=== PATIENT | male | born 1955 | race Caucasian/White ===

== ENCOUNTER 2020-09-25 17:37 | Outpatient (RCR) | payer MEDICARE, SELFPAY ==
[2020-09-25] MEDS: COVID-19 VACC, MRNA(PFIZER)/PF 30 MCG/0.3 ML SYRINGE IM (08:15)
[2020-10-16] MEDS: COVID-19 VACC, MRNA(PFIZER)/PF 30 MCG/0.3 ML SYRINGE IM (08:05)
== END 2020-12-25 23:59 ==
LOC: IMMUN 17:37
PROVIDERS: PCP Internal Medicine; Visit Provider Family Medicine
DX: Z23 Encounter for immunization (principal)
CPT/HCPCS: 0001A; 0002A; 91300

== ENCOUNTER 2021-05-07 07:27 | Day surgery (SDC) | payer MEDICARE, SELFPAY ==
[2021-05-07] MEDS: Lactated Ringers 1,000 ML 100 ML IV (08:00)
[2021-05-07 08:15] VITALS: BP 136/86; PULSE 65; RESP 16; TEMP 36.1; O2SAT 98; BMI 22.7
--- NOTE | 2021-05-07 08:32 | HP.PCM_ITS ---
HPI - General HPI Narrative SANYA KIRKPATRICK, is a 65 M who presents for screening colonoscopy. The patient is never had a colonoscopy in the past. Patient reports no abdominal pain or blood in stool. He has no family history of colon cancer. [facility] Medical History (Updated 05/07/21 @ 08:[address] Matteo Lee MD) Wears contact lenses Wears glasses Home Medications multivitamin 1 tab PO DAILY 05/02/21 [History Last Taken 05/06/21] Allergy/AdvReac Type Severity Reaction Status Date / Time No Known Allergies Allergy Verified 05/02/21 14:09 Surgical History (Updated 05/02/21 @ 14:13 by Beth Peña) Hx of surgical procedure Social History Smoking Status: Never smoker Past Medical/Surgical History Planned Operation Planned Operative Procedure/s: COLONOSCOPY Previous Hospitalizations/Surgeries HX Hospitalizations: No Any Problems With Anesthesia: No You/Your Family Experience Fever (Hyperthermia) With Anes: No Cholinesterase deficiency: No Cardiovascular Hx Hypertension: No Respiratory Hx Sleep Apnea: No Hx Respiratory Tract Infection/Cold (presently): No Do You Snore Loudly (louder than talking or can be heard): No Do You Often Feel Tired/ Fatigued/ Sleepy Dring Daytime?: No Has Anyone Observed You Stop Breathing During Sleep?: No Result (for STOP score): Negative Smoking Status: Never smoker Neurological Does patient have nerve stimulator: No Miscellaneous Recent Exposure to Contagious Disease: No Allergies No Known Allergies Allergy (Verified 05/02/21 14:09) Discharge Is Pt Admitted From a Skilled Nursing, or a [facility]: No After D/C, Where Do you Plan to Go: Return Home Vital Signs Vital Signs Vital Signs: 05/07/21 08:15 Temperature 96.9 F L Temperature Source Temporal Pulse Rate 65 Respiratory Rate 16 Respiratory Pattern Normal Blood Pressure 136/86 H Blood Pressure Mean 102 Blood Pressure Source Monitor Blood Pressure Position Semi-Fowlers Blood Pressure Location Left Arm Pulse Ox 98 Oxygen Delivery Method Room Air Weight Weight: 158 lb 11.725 oz Body Mass Index (BMI) 22.7 Physical Exam Const alert and oriented x3 Resp normal respiratory effort and normal air movement Cardio regular rate and regular rhythm GI soft to palpation, non-tender and non-distended Assessment & Plan Assessment/Plan (1) Screen for colon cancer: PLAN: I explained endoscopy in detail to the patient. I explained the risks including but not limited to stroke or heart attack with anesthesia, p erforation of the GI tract, bleeding, infection. I explained that any of these could necessitate further emergency surgery. The patient understands and all questions were answered sufficiently. The patient wishes to proceed with procedure. Matteo Lee MD Pager: [facility] [address] [place] [address] [address] [place] [address] Office: Surgery Risks - Colonoscopy Risks Include but are not Limited To: Risks include but are not limited to: Bleeding, perforation requiring further surgery, inability to complete colonoscopy requiring barium enema.
[2021-05-07 09:10] VITALS: BP 108/79; BP 136/86; PULSE 70; RESP 16; TEMP 36.1; O2SAT 99
[2021-05-07 09:15] VITALS: BP 109/82; BP 136/86; PULSE 69; RESP 16; O2SAT 99
[2021-05-07 09:20] VITALS: BP 116/74; BP 136/86; PULSE 58; RESP 16; O2SAT 97
--- NOTE | 2021-05-07 09:21 | OP.COLON_ITS ---
Patient Name: Eliecer Santoro Procedure Date: 05/07/2021 8:43 AM Date of : 1955 Age: 65 Procedure: Colonoscopy Indications: Screening for colorectal malignant neoplasm Providers: Matteo Lee MD Medicines: Monitored Anesthesia Care Patient Profile: This is a 65 year old male. Refer to note in patient chart for documentation of history and physical. Last Colonoscopy: none. The patient's first colonoscopy is today. Complications: No immediate complications. Procedure: Pre-Anesthesia Assessment: - Prior to the procedure, a History and Physical was performed, and patient medications and allergies were reviewed. The patient's tolerance of previous anesthesia was also reviewed. The risks and benefits of the procedure and the sedation options and risks were discussed with the patient. All questions were answered, and informed consent was obtained. Prior Anticoagulants: The patient has taken no previous anticoagulant or antiplatelet agents. After reviewing the risks and benefits, the patient was deemed in satisfactory condition to undergo the procedure. After I obtained informed consent, the scope was passed under direct vision. Throughout the procedure, the patient's blood pressure, pulse, and oxygen saturations were monitored continuously. The colonoscope was introduced through the anus and advanced to the cecum, identified by appendiceal orifice and ileocecal valve. The colonoscopy was performed without difficulty. The patient tolerated the procedure well. The quality of the bowel preparation was good. Scope In: 8:49:51 AM Scope Withdrawal Time 0 hours 6 minutes 28 seconds Scope Out: 9:06:04 AM Total Procedure Duration Time 0 hours 16 minutes 13 seconds Findings: The entire examined colon appeared normal on direct and retroflexion views. Impression: - The entire examined colon is normal on direct and retroflexion views. - No specimens collected. Recommendation: - Discharge patient to home. - Resume previous diet. - Continue present medications. - Repeat colonoscopy in 10 years for screening purposes. Procedure Code(s): --- Professional --- 94871, Colonoscopy, flexible; diagnostic, including collection of specimen(s) by brushing or washing, when performed (separate procedure) Diagnosis Code(s): --- Professional --- Z12.11, Encounter for screening for malignant neoplasm of colon CPT copyright 2017 [employer]. All rights reserved. 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 Matteo Lee MD 05/07/2021 9:20:53 AM This report has been signed electronically. Number of Addenda: 0 Note Initiated On: 05/07/2021 8:43 AM
--- NOTE | 2021-05-07 09:22 | OP.CCLET_ITS ---
05/07/2021 Esther Lopez [address] [place] [address] Re : Colonoscopy procedure for Eliecer Santoro Dear Dr. Lopez This procedure was performed on Friday, May 07, 2021. My impressions and recommendations are as follows: Impressions : - The entire examined colon is normal on direct and retroflexion views. - No specimens collected. Recommendations : - Discharge patient to home. - Resume previous diet. - Continue present medications. - Repeat colonoscopy in 10 years for screening purposes. My findings are described in the full procedure note, which is enclosed. If I can be of further assistance, please feel free to contact me at Doctor phone number(s): , Work: . Sincerely, Matteo Lee MD 05/07/2021 9:20:53 AM This report has been signed electronically.
[2021-05-07 09:25] VITALS: BP 115/90; BP 136/86; PULSE 63; RESP 16; TEMP 36.2; O2SAT 98
[2021-05-07 09:45] VITALS: BP 136/86
== END 2021-05-07 09:53 | disposition home or self-care (01) ==
LOC: EN 07:29 → AC 07:31
PROVIDERS: PCP Internal Medicine; Referring Provider Internal Medicine; Visit Provider Surgery
PROC: 0DJD8ZZ Inspection of Lower Intestinal Tract, Via Natural or Artificial Opening Endoscopic (ICD-10-PCS; CPT 45378; principal; 2021-05-07 08:25)
DX: Z12.11 Encounter for screening for malignant neoplasm of colon (principal)
CPT/HCPCS: G0121; J7120; J2405

== ENCOUNTER → 2021-05-24 07:29 | Outpatient (CLI) | payer MEDICARE, SELFPAY | PROVIDERS: PCP Internal Medicine; Referring Provider Urology; Visit Provider Urology | DX: R97.20 Elevated prostate specific antigen [PSA] (principal) | CPT/HCPCS: 36415; 84153 ==

== ENCOUNTER → 2021-06-27 11:13 | Outpatient (CLI) | payer MEDICARE, SELFPAY ==
--- NOTE | 2021-06-27 | IMM_PTH ---
PATIENT: SANYA KIRKPATRICK LOC: [facility] U#:[id number] AGE/SX: 69/M ROOM: RE06/27/[address]: Dr. Christopher Camarena MD : 1955 BED: DIS: SPEC #: [id number] RECD: 06/28/21 12:25 STATUS: ABBEY REMirta #: [id number] ADRIAN: 06/27/21 00:[address]: Christopher Camarena DEPT: IMMUNOHISTOCHEMISTRY RECD BY: Keisha Arndt ENTERED: 06/28/21 12:26 SP TYPE: IMMUNO OTHR DR: Dr. Esther Lopez, Tissues: B - PROSTATE RIGHT Procedures: P40 (add) 34BE12 (initial) PHYSICIAN & INSTITUTION [place] [id number] SPECIMEN INFORMATION: Tissue Source: B - Right prostate, mid, core biopsy Clinical Info: R97.20 Specimen Number: [id number] CPT code: 59861, 27605 METHODOLOGY: Deparaffinized sections of prefer/formalin-fixed tissue or PAP/DQ stained slides are incubated with monoclonal/polyclonal antibodies/oligonucleotide probes. Localization is made via biotin free immunoperoxidase method. Appropriate controls are performed and reacted as expected. Results on target cell population are indicated in the following table: RESULTS: ANTIBODY / CLONE RESULT Block B P40 (BC28) positive 34BE12 (34BE12) positive These tests were developed and their performance characteristics determined by [facility]. They may not have been cleared or approved by the U.S. Food and Drug Administration. The FDA has determined that such clearance or approval is not necessary. The above immunohistochemical/dualISH markers are ordered and reviewed by the Pathologist. INTERPRETATION: B. Right prostate, mid, core biopsy: Adenocarcinoma. AM:rubia 07/01/2021
--- NOTE | 2021-06-27 08:00 | PROSBIL_PTH ---
PATIENT: SANYA KIRKPATRICK LOC: [facility] U#:[id number] AGE/SX: 69/M ROOM: RE06/27/[address]: Dr. Christopher Camarena MD : 1955 BED: DIS: SPEC #: [id number] RECD: 06/27/21 11:02 STATUS: ABBEY SUNNI #: [id number] ADRIAN: 06/27/21 08:[address]: Christopher Camarena DEPT: SURGICAL PATHOLOGY RECD BY: Danielle Santos ENTERED: 06/27/21 13:07 SP TYPE: PROST BX YOGESH DR: Dr. Esther Lopez DO Tissues: A - PROSTATE RIGHT B - PROSTATE RIGHT C - PROSTATE RIGHT D - PROSTATE LEFT E - PROSTATE LEFT F - PROSTATE LEFT Procedures: PROSTATE BX HEADER OPERATION: Prostate biopsy PRE-OP DIAGNOSIS: R97.20 TISSUE SUBMITTED: A - Right apex, B - Right mid, C - Right base, D - Left apex, E - Left mid, F - Left base MICROSCOPIC DIAGNOSIS A. Right prostate, apex, core biopsy: Benign prostatic tissue. B. Right prostate, mid, core biopsy: Adenocarcinoma. [place] grade: 6 (3+3) Cores involved: 1 of 2 cores Tissue involved: <2% Greatest tumor length: 0.5 millimeters See comment. C. Right prostate, base, core biopsy: Adenocarcinoma. [place] grade: 6 (3+3) Cores involved: 1 of 2 cores Tissue involved: 50% Greatest tumor length: 6 millimeters D. Left prostate, apex, core biopsy: Benign prostatic tissue. E. Left prostate, mid, core biopsy: Adenocarcinoma. [place] grade: 6 (3+3) Cores involved: 2 of 2 cores Tissue involved: 75% Greatest tumor length: 9.5 millimeters F. Left prostate, base, core biopsy: Adenocarcinoma. [place] grade: 6 (3+3) Cores involved: 2 of 2 cores Tissue involved: 80% Greatest tumor length: 7 millimeters Perineural invasion: Positive AM:rubia 06/28/2021 COMMENT B. Immunohistochemistry ([id number]) supports the above diagnosis. MICROSCOPIC DESCRIPTION Slides are reviewed. GROSS DESCRIPTION A - Received is one container designated prostate, right apex. The specimen consists of one elongated fragment of light barclay-white soft tissue measuring 0.8 cm in length and 0.1 cm in diameter. The specimen is totally submitted in one cassette. B - Received is one container designated prostate, right mid. The specimen consists of two elongated fragments of light barclay-white soft tissue each measuring 1.5 cm in length and 0.1 cm in diameter. The specimen is totally submitted in one cassette. C - Received is one container designated prostate, right base. The specimen consists of two elongated fragments of light barclay-white soft tissue each measuring 1 cm in length and 0.1 cm in diameter. The specimen is totally submitted in one cassette. D - Received is one container designated prostate, left apex. The specimen consists of one elongated fragment of light barclay-white soft tissue measuring 0.7 cm in length and 0.1 cm in diameter. The specimen is totally submitted in one cassette. E - Received is one container designated prostate, left mid. The specimen consists of two elongated fragments of light barclay-white soft tissue each measuring 1 cm in length and 0.1 cm in diameter. The specimen is totally submitted in one cassette. F - Received is one container designated prostate, left base. The specimen consists of two elongated fragments of light barclay-white soft tissue each measuring 1 cm in length and 0.1 cm in diameter. The specimen is totally submitted in one cassette. / AM:rg 06/27/21 TC:0 [facility]: [id number]
== END ==
PROVIDERS: PCP Internal Medicine; Referring Provider Urology; Visit Provider Urology
DX: R97.20 Elevated prostate specific antigen [PSA] (principal)
CPT/HCPCS: 88305; 88341; 88342; G0416

== ENCOUNTER → 2021-07-17 07:53 | Outpatient (CLI) | payer MEDICARE, SELFPAY ==
--- NOTE | 2021-07-17 08:13 | NM_ITS ---
CLINICAL: 65-year-old male with reported history of carcinoma of the prostate. WHOLE BODY 99m Tc MDP RADIONUCLIDE BONE SCINTIGRAPHY COMPARISON: None available FINDINGS: Following the intravenous administration of 24.8 mCi of 99m Tc MDP, whole body bone images reveal: 1. Increased radiopharmaceutical concentration is defined in the acromioclavicular and sternoclavicular compartments of both shoulders, posterior midline sacrum, left wrist, right hand, knees bilaterally. 2. Facilitated uptake is observed in the distribution of the distal right ulnar diaphysis. 3. The remaining skeletal structures are scintigraphically unremarkable with normal-appearing renal images and urinary bladder activity identified. An increase in radiotracer is defined in the bilateral maxilla, interorbital aspect of the skull, right lacrimal and zygomatic bones most consistent with periostitis. NM/Bone Scan Whole Body IMPRESSION: 1. The increase in radiopharmaceutical concentration identified in the bilateral shoulders, sacrum, left wrist, right hand, right and left knees is most consistent with degenerative arthritis. 2. Enhanced uptake visualized in the distal right ulnar diaphysis may represent previous trauma-fracture. Plain film radiography correlation may be of benefit. 3. There is no definitive typical scintigraphic evidence of diffuse axial skeletal metastatic disease on the current examination. Electronically Signed: Osbaldo Smith DO at 23:47 EST Tel , Service support ,
== END ==
PROVIDERS: PCP Internal Medicine; Referring Provider Urology; Visit Provider Urology
DX: C61 Malignant neoplasm of prostate (principal)
CPT/HCPCS: 78306; A9503

== ENCOUNTER 2021-07-24 13:43 | Outpatient (CLI) | payer MEDICARE, SELFPAY ==
--- NOTE | 2021-07-24 13:51 | CT_ITS ---
STUDY: CT ABDOMEN AND PELVIS WITH CONTRAST REASON FOR EXAM: Male, 65 years old. PROSTATE CA RADIATION DOSAGE (If Supplied By Facility): CTDIvol = ( 11.36 ) mGy, DLP = ( 412.52 ) mGycm TECHNIQUE: Transaxial images were obtained from the dome of the diaphragm to the symphysis pubis with oral contrast. Oral and amp;amp; IV REDICAT and amp;amp; 100mL Isovue-300 was administered. Sagittal and coronal images were reconstructed. Individualized dose optimization techniques were used for this CT. COMPARISON: None. FINDINGS: The visualized lung bases are unremarkable. The visualized portions of the heart are within normal limits. Multiple small hepatic cysts. Normal gallbladder and extrahepatic biliary system. Normal spleen. Normal pancreas. Normal bilateral adrenal glands. Normal right kidney. 6.5 cm exophytic cyst in the upper pole left kidney. Normal visualized stomach. Normal small intestine. Normal colon. There is non-visualization of the appendix. Normal abdominal aorta. Normal inferior vena cava. Normal retroperitoneum. Normal urinary bladder. There are prostatic calcifications. There is a small umbilical hernia containing fat. Mild levoscoliosis of the lumbar spine. CT/Abdomen/Pelvis WITH Contrast IMPRESSION: Normal enhanced CT of the abdomen and pelvis. No metastatic lymphadenopathy. Electronically Signed: Osbaldo Milan MD at 15:01 EST Tel , Service support ,
[2021-07-24 14:25] LABS: CREATININE FINGERSTICK 0.8 mg/dL (0.70-1.30); EGFR FINGERSTICK > 60.0000 mL/min (>60)
== END 2021-07-24 23:59 | disposition short-term general hospital (02) ==
LOC: CT 13:49
PROVIDERS: PCP Internal Medicine; Referring Provider Urology; Visit Provider Urology
DX: C61 Malignant neoplasm of prostate (principal)
CPT/HCPCS: 74177; Q9967

== ENCOUNTER 2021-08-14 06:58 | Day surgery (SDC) | payer MEDICARE, SELFPAY ==
[2021-08-14 07:25] VITALS: BP 129/86; PULSE 63; RESP 16; TEMP 36.6; O2SAT 99; BMI 24.0
[2021-08-14] MEDS: Lactated Ringers 1,000 ML 15 ML IV (07:33)
[2021-08-14] MEDS: Cefazolin 2 GM in 0.9% Normal Saline 100 ML IV (08:30)
--- NOTE | 2021-08-14 08:52 | PCM.HP.STD ---
HPI - General HPI Narrative SANYA KIRKPATRICK, is a 65 M who presents for placement of markers and spacer gel to plan for treatment of prostate cancer PFSH Medical History (Updated 08/09/21 @ 14:19 by Marla Loya) Non-smoker Prostate cancer Wears contact lenses Wears glasses Home Medications multivitamin 1 tab PO DAILY 05/02/21 [History Last Taken 05/06/21] ciprofloxacin HCl [Cipro] 500 mg PO BID #10 tab 08/14/21 [Rx Last Taken Unknown] Allergy/AdvReac Type Severity Reaction Status Date / Time No Known Allergies Allergy Verified 08/14/21 07:15 Family History (Updated 07/30/21 @ 13:44 by Anita Pearson, RN) Mother Cancer ovarian Surgical History (Updated 08/09/21 @ 14:11 by Marla Loya) History of colonoscopy Hx of surgical procedure Social History (Updated 07/30/21 @ 13:44 by Anita Pearson, RN) Smoking Status: Never smoker substance use type: does not use Vital Signs Vital Signs Vital Signs: 08/14/21 07:25 Temperature 97.8 F Temperature Source Temporal Pulse Rate 63 Respiratory Rate 16 Respiratory Pattern Normal Blood Pressure 129/86 H Blood Pressure Mean 100 Blood Pressure Source Monitor Blood Pressure Position Semi-Fowlers Blood Pressure Location Left Arm Pulse Ox 99 Oxygen Delivery Method Room Air Weight Weight: 76 kg Body Mass Index (BMI) 24.0
--- NOTE | 2021-08-14 08:53 | PCM.DC ---
Discharge Instructions Diet Discharge Diet: No restrictions Activity Discharge Activity: Return to Normal Activity and May Not Drive (while taking narcotic pain medications.) Dressing / Incision Call your doctor if you observe: Fever of 101 or Higher Follow Up Care Please Follow Up With: Christopher Camarena MD When: Call [phone] for an appointment Test Results: Test results from this visit will be discussed in further detail at your follow-up appointment, if applicable. Discharge Plan Admission Primary Reason for Your Visit: Prostate cancer Attending Provider: Christopher Camarena Primary Care Provider: Esther Lopez Discharge Orders/Prescriptions Prescriptions: New ciprofloxacin HCl [Cipro] 500 mg tablet 500 mg PO BID Qty: 10 RF: 0 No Action multivitamin Tablet 1 tab PO DAILY RF: 0 Referrals / Follow Up: Christopher Camarena MD [STAFF PHYSICIAN] - Esther oLpez DO [Primary Care Provider] - Disposition Disposition (needs filled in before D/C Order can be placed): Home, Self Care
--- NOTE | 2021-08-14 08:53 | PCM.OPRPT ---
Report of Operation Date of Procedure: 08/14/21 Pre-Operative Diagnosis: Prostate cancer Post-Operative Diagnosis: Prostate cancer Surgery/Procedure Performed:: Placement of gold fiducial markers for radiation therapy planning, placement of spacer organ at risk gel matrix for radiation planning. Description of Surgical Findings:: Patient was taken back to the operating room after smooth induction of anesthesia he was placed supine on the table. The genitals and perineum were prepped and draped in usual sterile fashion. I then introduced a biplanar ultrasound probe into the rectum and performed ultrasonography and identified the Denonvilliers' fascia the prostate mid base and apex and seminal vesicles. The spacer gel mix was then prepared on the back table per manufactures instruction. Under ultrasound guidance in the midline perineum a bevel needle down we advanced through the perineum below the prostate into the space of Denonvilliers' fascia. This space which could be identified by ultrasound with a bright white layer between the prostate and the rectum. I then injected a puff of normal saline to identify the space further. After I confirmed that the needle was in the correct space in the mid prostate and the space of Denonvilliers' fascia between the rectum and the prostate. Then over the course of 15 seconds the gel matrix was injected slowly there was nice separation between the prostate and the rectum at the gel matrix was injected. The position of the gel matrix was confirmed by ultrasound. Then the injection needle was removed intact. The penis and testicles were prepped and draped in usual sterile fashion, ultrasound probe was placed into the rectum and biplanar ultrasound was performed on the prostate. Identified the base mid and apex of the prostate identified the transition zone prostate. Then using a needle the first national flatbed truck driver was placed into the right base of the prostate, the second national flatbed truck driver was placed in the left base of the prostate, and the third core marker was placed in the right apex of the prostate after all 3 markers were placed the placement of the markers were confirmed by ultrasonography Surgeon: Migue Type of Anesthesia: General Admit VTE Documentation VTE Present on Admission: No VTE Mechan Device Prophylaxis: SCD's VTE Pharm Prophylaxis ordered?: No
[2021-08-14 09:00] VITALS: BP 117/81; BP 129/86; PULSE 56; RESP 16; TEMP 36.6; O2SAT 97
[2021-08-14 09:15] VITALS: BP 117/79; BP 129/86; PULSE 57; RESP 16; O2SAT 97
[2021-08-14 09:22] VITALS: BP 116/76; BP 129/86; PULSE 66; RESP 16; TEMP 36.3; O2SAT 97
[2021-08-14 09:50] VITALS: BP 114/71; BP 129/86; PULSE 65; RESP 16; TEMP 36.6; O2SAT 95
== END 2021-08-14 23:59 | disposition home or self-care (01) ==
LOC: SDC 06:58 → AC 06:59
PROVIDERS: PCP Internal Medicine; Referring Provider Urology; Visit Provider Urology
PROC: (CPT 55874; principal; 2021-08-14 08:40)
DX: C61 Malignant neoplasm of prostate (principal); R97.20 Elevated prostate specific antigen [PSA]
CPT/HCPCS: 55876; 55874; 00902; J7120; J2405

== ENCOUNTER 2021-08-20 12:00 | Outpatient (CLI) | payer MEDICARE, SELFPAY ==
--- NOTE | 2021-08-20 12:01 | MRI_ITS ---
MR Pelvis Male WO/W Contrast 08/20/2021 12:31 PM COMPARISON: None CLINICAL HISTORY: 65-year-old man with prostate cancer. TECHNIQUE: Axial T1-weighted and high-resolution axial T2-weighted MR images of the pelvis were obtained as well as DWI and postcontrast images following administration of 15 cc of IV Dotarem. Images were acquired for planning of radiation therapy. MRI/Pelvis W/WO Contrast IMPRESSION: 1) T1 hyperintensity scattered throughout the prostate consistent with hemorrhage status post biopsy. This limits evaluation. 2) Heterogeneous appearance of the gland is at least in part due to the known prostate cancer, as well as being consistent with benign prostatic hyperplasia. 3) 1.6 x 1.9 x 2.2 cm PIRADS 5 lesion in the left mid transitional zone. There is possible microcapsular extension posteriorly. There is no evidence of macro capsular extension. 4) No evidence of seminal vesicle or bladder involvement. No bone involvement. No abnormal lymph nodes. Electronically Signed: Erick Herring MD at 22:08 EST ,
== END 2021-08-20 23:59 | disposition short-term general hospital (02) ==
PROVIDERS: PCP Internal Medicine; Referring Provider Student in an Organized Health Care Education/Training Program; Visit Provider Student in an Organized Health Care Education/Training Program
DX: C61 Malignant neoplasm of prostate (principal)
CPT/HCPCS: 72197; 77014; 77290; A9575

== ENCOUNTER → 2022-03-10 | Outpatient (CLI) | payer MEDICARE, SELFPAY ==
[2022-03-10 09:40] LABS: PSA,Total- Diagnostic 3.64 ng/mL (0.0-4.0)
== END | disposition home or self-care (01) ==
LOC: LAB 08:16
PROVIDERS: PCP Internal Medicine; Referring Provider Student in an Organized Health Care Education/Training Program; Visit Provider Student in an Organized Health Care Education/Training Program
DX: C61 Malignant neoplasm of prostate (principal)
CPT/HCPCS: 36415; 84153

== ENCOUNTER → 2022-09-09 | Outpatient (CLI) | payer MEDICARE, SELFPAY ==
[2022-09-09 10:32] LABS: PSA,Total- Diagnostic 2.94 ng/mL (0.0-4.0)
== END | disposition home or self-care (01) ==
LOC: LAB 08:29
PROVIDERS: PCP Internal Medicine; Referring Provider Urology; Visit Provider Urology
DX: C61 Malignant neoplasm of prostate (principal)
CPT/HCPCS: 36415; 84153

== ENCOUNTER → 2023-04-09 | Outpatient (CLI) | payer MEDICARE, SELFPAY | END | disposition home or self-care (01) | LOC: LAB 06:31 | PROVIDERS: PCP Internal Medicine; Referring Provider Internal Medicine; Visit Provider Internal Medicine | DX: C61 Malignant neoplasm of prostate (principal) | CPT/HCPCS: 36415; 84153 ==

== ENCOUNTER → 2023-10-07 | Outpatient (CLI) | payer MEDICARE, SELFPAY ==
[2023-10-07 08:38] LABS: Cholesterol 205 mg/dL (200); High Density Lipoprotein 73 mg/dL; PSA,Total- Diagnostic 2.08 ng/mL (0.0-4.0); Triglycerides 78 mg/dL; Very Low Density Lipoprotein 16 mg/dL (5-40)
== END | disposition home or self-care (01) ==
LOC: LAB 07:30
PROVIDERS: PCP Internal Medicine; Referring Provider Internal Medicine; Visit Provider Internal Medicine
DX: Z13.220 Encounter for screening for lipoid disorders (principal); C61 Malignant neoplasm of prostate
CPT/HCPCS: 36415; 80061; 84153

== ENCOUNTER → 2024-04-08 | Outpatient (CLI) | payer MEDICARE, SELFPAY ==
[2024-04-08 07:44] LABS: PSA,Total- Diagnostic 1.12 ng/mL (0.0-4.0)
== END | disposition home or self-care (01) ==
LOC: LAB 06:31
PROVIDERS: PCP Internal Medicine; Referring Provider Nurse Practitioner; Visit Provider Nurse Practitioner
DX: C61 Malignant neoplasm of prostate (principal)
CPT/HCPCS: 36415; 84153

== ENCOUNTER → 2024-10-07 | Outpatient (CLI) | payer MEDICARE, SELFPAY ==
[2024-10-07 07:53] LABS: PSA,Total- Diagnostic 0.72 ng/mL (0.00-4.00)
== END | disposition home or self-care (01) ==
PROVIDERS: PCP Internal Medicine; Referring Provider Nurse Practitioner; Visit Provider Nurse Practitioner
DX: C61 Malignant neoplasm of prostate (principal)
CPT/HCPCS: 36415; 84153

== ENCOUNTER → 2025-06-27 | Outpatient (CLI) | payer MEDICARE, SELFPAY ==
--- OUTSIDE RECORDS SUMMARY | 2025-06-27 07:04 | XMS RPT_ITS | CCD ---
Author Organization [facility] Care Team Providers Care It Systems Analyst Consultant Name Role Phone Esther Lopez DO Unavailable Minerva Castaneda MD Unavailable [phone] Matteo Lee Unavailable [phone] Esther Lopez DO Unavailable Berkley Singh CMA Unavailable Unavailable Ev, kevin Unavailable Unavailable Unavailable Unavailable Esther Lopez DO Unavailable Sandeep Blanco LPN Unavailable Unavailable Esther Lopez DO Attending Unavailable Esther Lopez DO Referring Unavailable Esther Lopez DO Consulting Unavailable Coreen FISHER, Vinod Unavailable Unavailable Esther Lopez Primary Care Unavailable [place], Audrey Attending Unavailable [place], Audrey Referring Unavailable Esther Lopez Primary Care Unavailable [place], Audrey Attending Unavailable BraintreeAudrey Referring Unavailable Dr. Esther Lopez DO Primary Care Provider [phone] [place], Audrey Attending Provider [phone] [place], Audrey Referring Provider [phone] Allergies Allergy Classification Reported Allergen(s) Allergy Type Date of Onset Reaction(s) Facility (9 sources) Allergic rhinitis due to pollen Allergy to substance (finding) [facility] Work Phone: Medications Current Medications Medication Drug Class(es) Dates Sig (Normalized) Sig (Original) ciprofloxacin 500 mg oral tablet (3 sources) Quinolone Antimicrobial Start: 08-14-2021 take 1 tablet by mouth twice daily Ciprofloxacin Hcl (Cipro) 500 mg tablet Active 500 mg PO TWICE A DAY August 14, 2021 1:00am loratadine 10 mg oral tablet (9 sources) Start: 03-13-2022 take 1 tablet by mouth once daily Loratadine (Allergy Relief (Loratadine)) 10 mg tablet Active 10 mg PO DAILY March 13, 2022 12:00am Loratadine 10 MG Oral Capsule (10 MG) Active Multivitamin preparation (11 sources) Start: 05-02-2021 take 1 tablet by mouth once daily Multivitamin Active 1 TABLET PO DAILY May 02, 2021 12:00am Start: 05-02-2021 take 1 tablet by zack th once daily Multivitamin Active 1 TABLET PO DAILY May 01, 2021 11:00pm MULTIVITAMIN (PO Liquid) for 0 days Refills: 0 Ordered: 24-Apr-2022 Sandeep Blanco LPN Active MULTIVITAMIN (PO Liquid) for 0 days Refills: 0 Ordered: 17-Apr-2021 Berkley Singh CMA Active Multivitamin Tablet (1 source) Start: 05-02-2021 Multivitamin T ablet Active 1 {tbl} PO DAILY May 02, 2021 12:00am Completed/Discontinued Medications Medication Drug Class(es) Dates Sig (Normalized) Sig (Original) aspirin 81 mg oral tablet (9 sources) Platelet Aggregation Inhibitor, Nonsteroidal Anti-inflammatory Drug End: 04-24-2022 take 1 tablet by mouth once daily ASPIRIN LOW DOSE, 81MG (PO Tab) 1 QD for 0 days Refills: 0 Ordered: 24-Apr-2022 Sandeep Blanco LPN End : 24-Apr-2022 Discontinued Comments: This order discontinued per -. Comment on above: This order discontin ued per -. Problems Active Problems Problem Classification Problem Date Documented Date Episodic/Chronic Administrative/social admission (15 sources) Administrative reason for encounter; Translations: [Other general medical examination for administrative purposes] Resolved: 12-04-2008 12-04-2008 Episodic Cancer of prostate (4 sources) Primary malignant neoplasm of prostate; Translations: [Malignant neoplasm of prostate] Onset: 10-13-2024 07-30-2021 Chronic Cancer of prostate (12 sources) History of malignant neoplasm of prostate; Translations: [History of prostate cancer] 04-24-2022 Episodic Comment on above: done with all-treatm ents Immunizations and screening for infectious disease (20 sources) Patient encounter status; Translations: [Encounter for hepatitis C virus screening test for high risk patient] Resolved: 04-24-2022 04-17-2021 Episodic Other screening for suspected conditions (not mental disorders or infectious disease) (20 sources) Raised prostate specific antigen; Translations: [Elevated PSA] 04-24-2021 Episodic Comment on above: sees migue Residual codes; unclassified (20 sources) Body mass index 20-24 - normal; Translations: [BMI 23.0-23.9, adult] 04-17-2021 Episodic Residual codes; unclassified (15 sources) Influenza vaccination declined; Translations: [Influenza vaccination declined (Renamed from Refused influenza vaccine)] Resolved: 04-24-2022 04-17-2021 Episodic Residual codes; unclassified (20 sources) Non-smoker; Translations: [Nonsmoker] 04-17-2021 Episodic Past or Other Problems Problem Classification Problem Date Documented Date Episodic/Chronic Other upper respiratory disease (9 sources) Allergic rhinitis; Translations: [Allergic rhinitis] Resolved: 12-04-2008 04-24-2015 Chronic Unclassified (9 sources) BICEPS TENDON 04-17-2021 Comment on above: Torn left Unclassified (9 sources) Vasectomy planned; Translations: [Vasectomy] 04-17-2021 Unclassified (9 sources) Elevated PSA Unclassified (20 sources) Unclassified (3 sources) Nonsmoker Unclassified (3 sources) BMI 23.0-23.9, adult Unclassified (3 sources) Annual Medicare Phyiscal WITHOUT abnormal findings (Renamed from Encounter for general adult medical examination without abnormal findings) Unclassified (3 sources) Colon cancer screening (Renamed from Encounter for screening for malignant neoplasm of colon) Unclassified (3 sources) Encounter for screening for malignant neoplasm of prostate (Renamed from Screening for prostate cancer) Unclassified (3 sources) Encounter for screening for lipid disorder Unclassified (3 sources) Encounter for hepatitis C virus screening test for high risk patient Unclassified (3 sources) Influenza vaccination declined (Renamed from Refused influenza vaccine) Unclassified (3 sources) Other general medical examination for administrative purposes (V70.3) Results Test Name Value Interpretation Reference Range Facility Diagnostic total prostate sp ecific antigen (PSA) measurementOrdered By: Audrey Candelaria on 10-07-2024 Prostate Specific Antigen Total 0.72 ng/mL 0.00-4.00 [facility] Comment on above: This test was perfor med using the [employer] tPSA method. Measured values of a patient sample can vary depending on the testing procedure used. PSA values determined on patient samples by different testing procedures cannot be used interchangeably. If there is a change in PSA assays while monitoring therapy, sequential testing should be performed to confirm baseline values. PSA,Total- Diagn[employer]icon - PSA, DIAGNOSTIC 0.72 ng/mL Normal 0.00-4.00 [facility] Comment on above: Result Comment: This test was performed using the [employer] tPSA method. Measured values of a patient??sample can vary depending on the testing procedure used. PSA values determined on patient samples by different testing procedures cannot be used interchangeably. If there is a change in PSA assays while monitoring therapy, sequential testing should be performed to confirm baseline values. Performed By: #### L [id number] #### [facility] [address] [place], [address] PSA,Total- Diagnosticon 03-21 PSA, DIAGNOSTIC 1.12 ng/mL Normal 0.0-4.0 [facility] Comment on above: Result Comment: This test was performed using the TPSA assay method for the [employer] chemistry system. Values obtained with different assay methods cannot be used interchangably. When changing PSA assays in the course of monitoring a patient, additional sequential testing should be carried out to confirm baseline values. Performed By: #### L [id number] #### [facility] [address] [place], [address] Basophil percentageOrdered B y: Esther Lopez on 10-07-2023 Basophil percentage 2.08 ng/mL 0.0-4.0 [facility] Comment on above: This test was perfor med using the TPSA assay method for the[employer] chemistry system. Values obtained with differentassay methods cannot be used interchangably.When changing PSA assays in the course of monitoring apatient, additional sequential testing should be carriedout to confirm baseline values. Cholesterol [Mass/Vol] 205 mg/dL <200 [facility] Comment on above: <200 mg/dL Desirable 200-240 mg/dL Borderline >240 mg/dL High Risk Triglyceride [Mass/Vol] 78 mg/dL <199 [facility] Comment on above: The drugs N-Acetylcy steine and Metamizole may falsely depress this assay.Serum Triglycerides Reference Interval Normal <150 mg/dL Borderline high 150 - 199 mg/dL High 200 - 499 mg/dL Very High > or = 500 mg/dL Laboratory - Chemistry and C hemistry - challengeOrdered By: Esther Lopez on 10-07-2023 Cholesterol in HDL [Mass/Vol] 73 mg/dL >40 [facility] Comment on above: The drugs N-Acetylcy steine and Metamizole may falsely depress this assay. Reference Range HDL <40 mg/dL Low HDL Cholesterol HDL >or= 60 mg/dL High HDL Cholesterol Cholesterol in LDL [Mass/Vol] 116 mg/dL 0-130 [facility] No Panel InformationOrdered By: Esther Lopez on 10-07-2023 VLDL Cholesterol 16 mg/dL 5-40 [facility] No Panel InformationOrdered By: Dr. Camarena on 09-09-2022 Prostate Specific Antigen Total 2.94 ng/mL 0.0-4.0 [facility] Comment on above: This test was perfor med using the TPSA assay method for the[employer] chemistry system. Values obtained with differentassay methods cannot be used interchangably.When changing PSA assays in the course of monitoring apatient, additional sequential testing should be carriedout to confirm baseline values. HEPATITIS C ANTIBODY ([id number]) Ordered By: Proposal Analyst on 04-18-2021 HCV Ab Signal/Cutoff IA [Rel units/Vol] {ratio} Normal 0.0-0.9 [facility]; [facility] Work Phone: Comment on above: Negative: < 0.8 Inde terminate: 0.8 - 0.9 Positive: > 0.9 . The CDC recommends that a positive HCV antibody result be followed up with a HCV Nucleic Acid Amplification test (223617). PATIENT WAS FASTINGP ERFORMED BY: LabCoHoly Name Medical CenterWoretx0205 [facility] [id number] LIPID PANEL ([id number])Ordered B y: Proposal Analyst on 04-18-2021 Cholesterol [Mass/Vol] 196 mg/dL Normal 100-199 [facility]; [facility] Work Phone: Comment on above: PATIENT WAS FASTINGP ERFORMED BY: MOISÉS LabMegan [id number] [address] [facility] [place] [id number] Cholesterol in HDL [Mass/Vol] 71 mg/dL Normal [facility]; [facility] Work Phone: Comment on above: PATIENT WAS FASTINGP ERFORMED BY: MOISÉS LabMegan TiradoXdcrfs5056 [facility] [id number] Triglyceride [Mass/Vol] 49 mg/dL Normal 0-149 [facility]; [facility] Work Phone: Comment on above: PATIENT WAS FASTINGP ERFORMED BY: MOISÉS LabMegan TiradoZyseiy7941 [address] [facility] [id number] LIPID PANEL ([id number]) 9 mg/dL Normal 5-40 [facility] Work Phone: Comment on above: PATIENT WAS FASTINGP ERFORMED BY: MOISÉS Tiradolin6370 [facility] [id number] LIPID PANEL ([id number]) 116 mg/dL Abnormal 0-99 [facility]; [facility] Work Phone: Comment on above: PATIENT WAS FASTINGP ERFORMED BY: MOISÉS LabMegan Qoxlms2438 [facility] [id number] LIPID PANEL ([id number]) 1.6 {ratio} Normal 0.0-3.6 [facility] Work Phone: Comment on above: LDL/HDL Ratio Men Wo men 1/2 Avg.Risk 1.0 1.5 Avg.Risk 3.6 3.2 2X Avg.Risk 6.2 5.0 3X Avg.Risk 8.0 6.1 PATIENT WAS FASTINGP ERFORMED BY: MOISÉS LabCochris Nyithw7810 [address] [facility] [place] [id number] PSA (PROSTATE SPECIFIC ANTIG EN) (V76.44)Ordered By: Proposal Analyst on 04-18-2021 Prostate specific Ag [Mass/Vol] 10.8 ng/mL Abnormal 0.0-4.0 [facility]; [facility] Work Phone: Comment on above: [employer] methodol ogy. .According to the [place] [employer], Serum PSA shoulddecrease and remain at undetectable levels after radicalprostatectomy. The AUA defines biochemical recurrence as an initialPSA value 0.2 ng/mL or greater followed by a subsequent confirmatoryPSA value 0.2 ng/mL or greater.Values obtained with different assay methods or kits cannot be usedinterchangeably. Results cannot be interpreted as absolute evidenceof the presence or absence of malignant disease. PATIENT WAS FASTINGP ERFORMED BY: [facility]Core[facility]6370 [facility] [id number] Vital Signs Date Time Vital Sign Value Performing Clinician Facility 04-29-2023 [id number] Body height 177.8 cm [facility] Work Phone: 04-29-2023 09:31-0400 Body mass index (BMI) [Ratio] 23.87 kg/m2 [facility]; [facility] Work Phone: 04-29-2023 [id number] Body surface area Derived from formula 1.93 m2 [facility] Work Phone: 04-29-2023 [id number] Body temperature 97.4 [degF] [facility]; [facility] Work Phone: 04-29-2023 09:31-0400 Body weight 75.47 kg [facility]; [facility] Work Phone: 04-29-2023 09:31-0400 Diastolic blood pressure 76 mm[Hg] [facility]; [facility] Work Phone: Comment on above: Patient Position: Sitting; Cuff Location : Left Arm; Cuff Size: Standard 04-29-2023 09:31-0400 Heart rate 50 /min [facility]; [facility] Work Phone: Comment on above: Pattern: Regular 04-29-2023 09:31-0400 Respiratory rate 18 /min [facility]; [facility] Work Phone: Comment on above: Pattern: Unlabored 04-29-2023 09:31-0400 SaO2% (BldA) [Mass fraction] 98 % [facility]; [facility] Work Phone: Comment on above: Room air 04-29-2023 09:31-0400 Systolic blood pressure 120 mm[Hg] [facility]; [facility] Work Phone: Comment on above: Patient Position: Sitting; Cuff Location : Left Arm; Cuff Size: Standard 04-24-2022 11:49-0400 Body height 177.8 cm Sandeep Blanco [facility]; [facility] Work Phone: 04-24-2022 11:49-0400 Body mass index (BMI) [Ratio] 23.36 kg/m2 Sandeep Blanco VICE PRESIDENT OF COMMUNICATIONS [facility]; [facility] Work Phone: 04-24-2022 11:49-0400 Body surface area Derived from formula 1.91 m2 Sandeep Blanco VICE PRESIDENT OF COMMUNICATIONS [facility]; [facility] Work Phone: 04-24-2022 11:49-0400 Body temperature 97.3 [degF] Sandeep Blanco [facility]; [facility] Work Phone: Comment on above: Method: Infrared 04-24-2022 11:49-0400 Body weight 73.85 kg Sandeep Blanco LPN [facility]; [facility] Work Phone: 04-24-2022 11:49-0400 Diastolic blood pressure 78 mm[Hg] Sandeep Blanco [facility]; [facility] Work Phone: Comment on above: Patient Position: Sitting; Cuff Location : Left Arm; Cuff Size: Standard 04-24-2022 11:49-0400 Heart rate 67 /min Sandeep Blanco VICE PRESIDENT OF COMMUNICATIONS [facility]; [facility] Work Phone: Comment on above: Pattern: Regular 04-24-2022 11:49-0400 Respiratory rate 16 /min Sandeep Francis [facility]; [facility] Work Phone: Comment on above: Pattern: Unlabored 04-24-2022 11:49-0400 SaO2% (BldA) [Mass fraction] 97 % Sandeep Francis [facility]; [facility] Work Phone: Comment on above: Room air 04-24-2022 11:49-0400 Systolic blood pressure 116 mm[Hg] Sandeep Francis [facility]; [facility] Work Phone: Comment on above: Patient Position: Sitting; Cuff Location : Left Arm; Cuff Size: Standard 04-17-2021 09:45-0400 Body height 177.8 cm Berkley Aquinobeatlab [facility]; [facility] Work Phone: 04-17-2021 09:45-0400 Body mass index (BMI) [Ratio] 23.55 kg/m2 Berkley [facility]oh[facility] center[facility]; [facility] Work Phone: 04-17-2021 09:45-0400 Body surface area Derived from formula 1.92 m2 Berkleynuria Aquinobeatlab [facility]; [facility] Work Phone: 04-17-2021 09:45-0400 Body temperature 97 [degF] [facility]; [facility] Work Phone: Comment on above: Method: Thermal Scan 04-17-2021 09:45-0400 Body weight 74.45 kg Berkley Aquinobeatlab [facility]; [facility] Work Phone: 04-17-2021 09:45-0400 Diastolic blood pressure 76 mm[Hg] Berkley [facility]; [facility] Work Phone: Comment on above: Patient Position: Sitting; Cuff Location : Left Arm; Cuff Size: Standard 04-17-2021 09:45-0400 Heart rate 83 /min BerkleyS.N. Safe&Software [facility]; [facility] Work Phone: Comment on above: Pattern: Regular 04-17-2021 09:45-0400 Respiratory rate 16 /min Berkley Singh [facility]; [facility] Work Phone: Comment on above: Pattern: Unlabored 04-17-2021 09:45-0400 SaO2% (BldA) [Mass fraction] 98 % Berkley Singh [facility]; [facility] Work Phone: Comment on above: Room air 04-17-2021 09:45-0400 Systolic blood pressure 126 mm[Hg] Berkley Singh [facility]; [facility] Work Phone: Comment on above: Patient Position: Sitting; Cuff Location : Left Arm; Cuff Size: Standard 03-15-2007 14:29-0400 Body height 180.34 cm Laura Wolff LPN [facility]; [facility] Work Phone: 03-15-2007 14:29-0400 Body mass index (BMI) [Ratio] 22.89 kg/m2 Laura Wolff LPN [facility]; [facility] Work Phone: 03-15-2007 14:29-0400 Body surface area Derived from formula 1.94 m2 Laura Wolff LPN [facility]; [facility] Work Phone: 03-15-2007 14:29-0400 Body temperature 98.2 [degF] Laura Wolff LPN [facility]; [facility] Work Phone: Comment on above: Method: Oral 03-15-2007 14:29-0400 Body weight 74.45 kg Laura Wolff LPN [facility]; [facility] Work Phone: 03-15-2007 14:29-0400 Diastolic blood pressure 82 mm[Hg] Laura Wolff LPN [facility]; [facility] Work Phone: Comment on above: Patient Position: Sitting; Cuff Location : Left Arm; Cuff Size: Standard 03-15-2007 14:29-0400 Head Occipital-frontal circumference 0 cm Laura Stokeser VICE PRESIDENT OF COMMUNICATIONS [facility]; [facility] Work Phone: 03-15-2007 14:29-0400 Heart rate 70 /min Laura Wolff PHILLIP [facility]; [facility] Work Phone: Comment on above: Pattern: Regular 03-15-2007 14:29-0400 Respiratory rate 16 /min Laura New FISHER [facility]; [facility] Work Phone: Comment on above: Pattern: Unlabored 03-15-2007 14:29-0400 Systolic blood pressure 118 mm[Hg] Laura Wolff PHILLIP [facility]; [facility] Work Phone: Comment on above: Patient Position: Sitting; Cuff Location : Left Arm; Cuff Size: Standard Encounters Encounter Date Encounter Type Care Provider Facility Start: 10-07-2024 End: 10-07-[address] Esther Lopez DO Work Phone: [facility] Work Phone: Start: 10-07-2024 End: 10-07-2024 Patient encounter procedure Audrey Candelaria -Laboratory Work Phone: Start: 10-07-2024 End: 10-07-2024 ambulatory Esther Jessica Facility:[facility] Start: 04-08-2024 End: 04-08-2024 [facility] Start: 10-07-2023 End: 10-07-2023 ambulatory [facility] Work Phone: Start: 10-07-2023 End: 10-07-2023 Patient encounter procedure [facility] Work Phone: Start: 04-29-2023 End: 04-29-2023 Patient encounter procedure Vinod Angela LPN [facility] Start: 04-29-2023 End: 04-29-2023 Patient encounter status Esther Lopez DO Work Phone: [facility]; [facility] Work Phone: Start: 03-09-2023 End: 03-09-2023 Phone Encounter Esther Jessica DO Work Phone: [facility] Start: 09-09-2022 End: 09-09-2022 ambulatory [facility] Work Phone: Start: 09-09-2022 End: 09-09-2022 Patient encounter procedure [facility] Start: 04-24-2022 ambulatory Esther Jessica DO [facility] Start: 04-24-2022 Review Esther Fearo n DO Work Phone: [facility] Start: 04-24-2022 End: 04-24-2022 Office outpatient visit 25 minutes Esther Jessica DO Work Phone: [facility] Start: 04-24-2022 End: 04-24-2022 Patient encounter procedure Sandeep Blanco LPN [facility]; [facility] Work Phone: Start: 05-16-2021 End: 05-16-2021 Phone Encounter Esther Jessica DO Work Phone: [facility] Start: 04-24-2021 End: 04-24-2021 Phone Encounter Esther Jessica DO Work Phone: [facility] Start: 04-24-2021 End: 04-24-2021 Phone Encounter Esther Jessica DO Work Phone: [facility] Start: 04-19-2021 End: 04-19-2021 Phone Encounter Etsher Jessica DO Work Phone: [facility] Start: 04-17-2021 End: 04-17-2021 Patient encounter procedure Esther Jessica DO Work Phone: [facility]; [facility] Work Phone: Start: 04-17-2021 End: 04-17-2021 Periodic preventive med est patient 65yrs& older Esther Jessica DO Work Phone: [facility] Start: 03-15-2007 End: 03-15-2007 Patient encounter procedure Esther Jessica DO Work Phone: [facility] Start: 03-05-2007 End: 03-05-2007 Historical Summary Esther Lopez DO Work Phone: [facility] Procedures Date Procedure Procedure Detail Performing Clinician Start: 03-13-2022 End: 03-13-2022 Radiation Oncology Visit Procedure Note: See Note; NOTES: [facility] [place] [address] OFFICE VISIT Date of Service: 03/13/22 1454 MR#: [id number] Acct: [id number] Name: ELIECER SANTORO Rep #: [id number] : 1955 From: Leonel Snow DO Age/Sex: 66/M Location: [facility] Status: Signed Intake Vital Signs 08/14/21 07:25 03/13/22 14:58 03/13/22 15:02 Height 5 ft 10 in 5 ft 10 in 5 ft 10 in Weight: 161 lb 5 oz BMI 23.1 BP 155/90 H Blood Pressure Location Rt brachial Position Sitting Respiration 16 Pulse 52 L Pulse Source Monitor Temp 97.1 F L Temperature Source Temporal Artery Pulse Oximetry (%) 99 Oxygen Delivery Method room air Intake Visit Reasons: followup prostate Allergies No Known Allergies Allergy (Verified 03/13/22 15:01) Medications multivitamin 1 tab PO DAILY 05/02/21 [History Confirmed 03/13/22] ciprofloxacin HCl 500 mg tablet (Cipro) 500 mg PO BID #10 tabs 08/14/21 [Rx Confirmed 10/09/21] loratadine 10 mg tablet (Allergy Relief (loratadine)) 10 mg PO DAILY 03/13/22 [History Confirmed 03/13/22] PFSH PFSH Medical History Non-smoker Prostate cancer Wears contact lenses Wears glasses Home Medications multivitamin 1 tab PO DAILY 05/02/21 [History Last Taken 05/06/21] ciprofloxacin HCl 500 mg tablet (Cipro) 500 mg PO BID #10 tabs 08/14/21 [Rx Last Taken Unknown] loratadine 10 mg tablet (Allergy Relief (loratadine)) 10 mg PO DAILY 03/13/22 [History Last Taken Unknown] Allergy/AdvReac Type Severity Reaction Status Date / Time No Known Allergies Allergy Verified 03/13/22 15:01 Family History Mother Cancer ovarian Surgical History History of colonoscopy Hx of surgical procedure Social History Smoking Status: Never smoker substance use type: does not use Diagnosis: Eliecer Santoro is a 66-year-old male diagnosed with 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 From 09/02/2021 ??? 10/09/2021 he received definitive radiation therapy to the prostate and proximal SVs. History of Present Illness: 05/07/2021: Colonoscopy was performed. This demonstrated no lesions or abnormalities. 06/27/2021: TRUS guided biopsy of the prostate was performed. This demonstrated [place] score 3+3 adenocarcinoma involving less than 2% of 1/2 cores in the right mid, 50% of 1/2 cores of the right base, 75% of 2/2 cores of the left mid, and 80% of 2/2 cores of the left base. 07/17/2021: Bone scan was performed which demonstrated evidence of degenerative arthritis, evidence of trauma/fracture in the right ulnar diaphysis, but no evidence of metastatic disease. 07/24/2021: CT abdomen/pelvis with contrast was performed. This demonstrated prostatic calcifications. No evidence of lymphadenopathy. No evidence of disease. 07/25/2021: Patient was evaluated by urology to discuss imaging results and treatment options. Recommended against active surveillance and discussed surgery and radiation therapy. From 09/02/2021 ??? 10/09/2021: received 7000 cGy of 10 MV photons in 28 fractions to the prostate and proximal seminal vesicles Radiation Treatment History: 1) From 09/02/2021 ??? 10/09/2021: received 7000 cGy of 10 MV photons in 28 fractions to the prostate and proximal seminal vesicles Interval History: Patient presents for follow-up approximately 5 months after completing definitive radiation therapy. He reports doing very well overall. He believes urinary symptoms have returned to his baseline. He has nocturia about 1 time per night. He denies having urinary urgency, frequency, hesitancy, weak stream, incomplete emptying. He denies leakage, dysuria, hematuria. He reports normal bowel movements without diarrhea or constipation. He denies rectal pain or bleeding. He uses Viagra and reports good sexual function but notes a reduced ejaculate. Energy level has remained normal. He denies bone pain. He stays active in his daily life and denies having other problems or concerns at this time. RAGHAV: 20 IPSS: 1 Review of Systems: A 12-point review of systems was completed and was negative except for what is noted in the HPI/Interval History and by the nurse. Physical Exam: Weight: 161 lbs 5 oz ECO KARNOFSKY SCORE: 90% CONSTITUTIONAL: Well-developed, well-nourished, and in no apparent distress. NECK: Supple, no thyromegaly, and non-tender. Trachea midline. No cervical or supraclavicular adenopathy noted. CARDIAC: Regular rate and rhythm. Normal S1, S2. No murmurs, rubs, or gallops. PULMONARY/CHEST: Lungs are clear to auscultation and percussion bilaterally. No wheezes, rhonchi, or crackles noted. No increased work of breathing. ABDOMINAL: Abdomen soft, non-tender, non-distended. No hepatomegaly. Normoactive bowel sounds in all four quadrants. No guarding, rebound. BACK: Straight and aligned. No CVA tenderness. Axial skeleton non-tender to percussion. EXTREMITIES: Full range of motion in all four extremities. No evidence of edema. TOM: Deferred PSYCHIATRIC: Appropriate mood and affect for the clinical situation. 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 From 09/02/2021 ??? 10/09/2021 he received definitive radiation therapy to the prostate and proximal SVs. Plan: Patient presents for follow-up approximately 5 months after completing definitive radiation therapy for prostate cancer. There is no evidence of disease and he has no signs or symptoms concerning for development of disease progression or metastatic disease. He does not have any notable toxicity from treatment. PSA has decreased to 3.64. I reviewed recommendation for follow-up of completing PSA at least every 6 months, he plans to see urology for follow up and will return to see me as needed. He was instructed to call with any further questions or concerns in the future. Thank you for allowing me to participate in the management and care of your patient. If I may answer any questions in the interim, please do not hesitate to contact me at any time. Leonel Snow DO, MS Bilingual Operator, Department of Radiation Oncology [facility] Coding Level of Care Code Off vis,est,level 3 Diagnoses Encounter for Follow-Up Surveillance of Prostate Cancer Z08; Z85.46 03/13/22 1521 <Electronically signed by Leonel Snow DO> Date Leonel Snow DO Cosign Signature: Date (if applicable) CC: Dr. Christopher Camarena MD; DO Esther Cerda DO Work Phone: Start: 11-07-2021 End: 11-07-2021 Radiation Oncology Visit Procedure Note: See Note; NOTES: [facility] [address] [place] [address] OFFICE VISIT Date of Service: 11/07/21 1532 MR#: [id number] Acct: [id number] Name: ELIECER SANTORO Rep #: [id number] : 1955 From: Leonel Snow DO Age/Sex: 66/M Location: [facility] Status: Signed Intake Vital Signs 11/07/21 15:32 Weight: 167 lb 8 oz BP 126/85 H Blood Pressure Location Rt brachial Position Sitting Respiration 14 Pulse 58 L Pulse Source Monitor Temp 97.6 F L Temperature Source Tympanic Pulse Oximetry (%) 98 Oxygen Delivery Method room air Intake Visit Reasons: followupprostateo, Encounter for follow-up surveillance of prostate cancer Is patient in pain?: No Allergies No Known Allergies Allergy (Verified 11/07/21 15:32) Medications multivitamin 1 tab PO DAILY 05/02/21 [History Confirmed 11/07/21] ciprofloxacin HCl [Cipro] 500 mg PO BID #10 tab 08/14/21 [Rx Confirmed 10/09/21] PFSH PFSH Medical History (Updated 08/09/21 @ 14:19 by Marla Loya) Non-smoker Prostate cancer Wears contact lenses Wears glasses Home Medications multivitamin 1 tab PO DAILY 05/02/21 [History Last Taken 05/06/21] ciprofloxacin HCl [Cipro] 500 mg PO BID #10 tab 08/14/21 [Rx Last Taken Unknown] Allergy/AdvReac Type Severity Reaction Status Date / Time No Known Allergies Allergy Verified 11/07/21 15:32 Family History (Updated 07/30/21 @ 13:44 by Anita Pearson RN) Mother Cancer ovarian Surgical History (Updated 08/09/21 @ 14:11 by Marla Loya) History of colonoscopy Hx of surgical procedure Social History (Updated 07/30/21 @ 13:44 by Anita Pearson RN) Smoking Status: Never smoker substance use type: does not use Diagnosis: Eliecer Santoro is a 66-year-old male diagnosed with 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 From 09/02/2021 ??? 10/09/2021 he received definitive radiation therapy to the prostate and proximal SVs. History of Present Illness: 05/07/2021: Colonoscopy was performed. This demonstrated no lesions or abnormalities. 06/27/2021: TRUS guided biopsy of the prostate was performed. This demonstrated Fairfax score 3+3 adenocarcinoma involving less than 2% of 1/2 cores in the right mid, 50% of 1/2 cores of the right base, 75% of 2/2 cores of the left mid, and 80% of 2/2 cores of the left base. 07/17/2021: Bone scan was performed which demonstrated evidence of degenerative arthritis, evidence of trauma/fracture in the right ulnar diaphysis, but no evidence of metastatic disease. 07/24/2021: CT abdomen/pelvis with contrast was performed. This demonstrated prostatic calcifications. No evidence of lymphadenopathy. No evidence of disease. 07/25/2021: Patient was evaluated by urology to discuss imaging results and treatment options. Recommended against active surveillance and discussed surgery and radiation therapy. From 09/02/2021 ??? 10/09/2021: received 7000 cGy of 10 MV photons in 28 fractions to the prostate and proximal seminal vesicles Radiation Treatment History: 1) From 09/02/2021 ??? 10/09/2021: received 7000 cGy of 10 MV photons in 28 fractions to the prostate and proximal seminal vesicles Interval History: Patient presents for follow-up approximately 1 month after completing definitive radiation therapy. He reports doing very well overall. Following treatment he did have some increase in nocturia which has subsequently completely resolved. He is currently going 1 time per night. He rarely has increased frequency during the day. He denies having urinary urgency, hesitancy, weak stream, incomplete emptying. He denies leakage, dysuria, hematuria. He reports normal bowel movements without diarrhea or constipation. He denies rectal pain or bleeding. Energy level has remained normal. He denies bone pain. He stays active in his daily life and denies having other problems or concerns at this time. Review of Systems: A 12-point review of systems was completed and was negative except for what is noted in the HPI/Interval History and by the nurse. Physical Exam: Weight: 167 lbs 8 oz ECO KARNOFSKY SCORE: 90% CONSTITUTIONAL: Well-developed, well-nourished, and in no apparent distress. NECK: Supple, no thyromegaly, and non-tender. Trachea midline. No cervical or supraclavicular adenopathy noted. CARDIAC: Regular rate and rhythm. Normal S1, S2. No murmurs, rubs, or gallops. PULMONARY/CHEST: Lungs are clear to auscultation and percussion bilaterally. No wheezes, rhonchi, or crackles noted. No increased work of breathing. ABDOMINAL: Abdomen soft, non-tender, non-distended. No hepatomegaly. Normoactive bowel sounds in all four quadrants. No guarding, rebound. BACK: Straight and aligned. No CVA tenderness. Axial skeleton non-tender to percussion. EXTREMITIES: Full range of motion in all four extremities. No evidence of edema. TOM: Deferred NEUROLOGICAL EXAM: Alert and oriented x 3. Answers questions and follows commands appropriately. Cranial nerves II through XII are grossly intact. No focal neurological deficit. Speech is fluent. Muscle strength is 5/5 in all muscle groups. Gait and posture without abnormality. PSYCHIATRIC: Appropriate mood and affect for the clinical situation. 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 From 09/02/2021 ??? 10/09/2021 he received definitive radiation therapy to the prostate and proximal SVs. Plan: Patient presents for follow-up approximately 1 month after completing definitive radiation therapy for prostate cancer. There is no evidence of disease and he has no signs or symptoms concerning for development of disease progression or metastatic disease. He does not have any notable toxicity from treatment. I reviewed recommendation for follow-up of completing PSA at least every 6 months, I will have him return for routine follow-up in 4 months with a PSA prior and he was instructed to call with any further questions or concerns in the interim. Thank you for allowing me to participate in the management and care of your patient. If I may answer any questions in the interim, please do not hesitate to contact me at any time. Leonel Snow DO, MS Bilingual Operator, Department of Radiation Oncology [facility] Coding Level of Care Code Off vis,est,level 3 Diagnoses Encounter for Follow-Up Surveillance of Prostate Cancer Z08; Z85.46 11/07/21 1549 <Electronically signed by Leonel Snow DO> Date Leonel Snow DO [facility] Signature: Date (if applicable) CC: Dr. 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 Oncologic History: 05/07/2021: Colonoscopy was performed. This demonstrated no lesions or abnormalities. 06/27/2021: TRUS guided biopsy of the prostate was performed. This demonstrated Kamil[place] score 3+3 adenocarcinoma involving less than 2% of 1/2 cores in the right mid, 50% of 1/2 cores of the right base, 75% of 2/2 cores of the left mid, and 80% of 2/2 cores of the left base. 07/17/2021: Bone scan was performed which demonstrated evidence of degenerative arthritis, evidence of trauma/fracture in the right ulnar diaphysis, but no evidence of metastatic disease. 07/24/2021: CT abdomen/pelvis with contrast was performed. This demonstrated prostatic calcifications. No evidence of lymphadenopathy. No evidence of disease. 07/25/2021: Patient was evaluated by urology to discuss imaging results and treatment options. Recommended against active surveillance and discussed surgery and radiation therapy. Radiation Treatment History: None The patient completed a course of external beam radiotherapy in our department. This treatment was delivered for curative intent. Treatment was given according to the following parameters: ELIECER SANTORO received 7000 cGy of 10 MV photons in 28 fractions to the prostate and proximal seminal vesicles with a VMAT technique. The patient did not receive concurrent chemotherapy. Date of First Treatment: 09/02/2021 Date of Last Treatment: 10/09/2021 Total Elapsed Days (including weekend and holidays): 37 Missed Treatments: none Response and Tolerance: The patient tolerated this course of radiotherapy well overall without developing any noted treatment associated toxicities. The following radiation related toxicities developed during the course of radiation therapy: Total weight change during therapy: N/A Disposition: The patient tolerated the planned course of radiation therapy well without unexpected toxicity in an appropriate time course. I reviewed management of potential toxicities and discussed expected timing for toxicity resolution. I will have ELIECER follow-up in one month for a routine visit. He will maintain follow up with all other providers. ELIECER was instructed to call with any further questions or concerns in the interim. If we can provide any further information on this patient's course of care, please do not hesitate to ask. We would like to thank you very much for allowing us to participate in the care of this patient. Sincerely, Leonel Snow DO, MS Bilingual Operator, Department of Radiation Oncology [facility] 10/09/21 1303 <Electronically signed by Leonel Snow DO> Date Leonel Snow DO Cosigner Signature: Date (if applicable) CC: Dr. Christopher Camarena MD; DO Esther Cerda DO Work Phone: Start: 10-02-2021 End: 10-02-2021 Radiation Oncology Visit Procedure Note: See Note; NOTES: [facility] [address] [address] OFFICE VISIT Date of Service: 10/02/21 1211 MR#: [id number] Acct: [id number] Name: ELIECER SANTORO Rep #: [id number] : 1955 From: Ronn Zhang MD Age/Sex: 65/M Location: [facility] Status: Signed Intake Vital Signs 10/02/21 12:11 Weight: 166 lb BP 151/95 H Blood Pressure Location Rt brachial Position Sitting Respiration 14 Pulse 53 L Pulse Source Monitor Temp 98.3 F Temperature Source Tympanic Pulse Oximetry (%) 99 Oxygen Delivery Method room air Intake Visit Reasons: OTV Is patient in pain?: No Allergies No Known Allergies Allergy (Verified 10/02/21 12:13) Medications multivitamin 1 tab PO DAILY 05/02/21 [History Confirmed 10/02/21] ciprofloxacin HCl [Cipro] 500 mg PO BID #10 tab 08/14/21 [Rx Confirmed 10/02/21] PFSH PFSH Medical History (Updated 08/09/21 @ 14:19 by Marla Loya) Non-smoker Prostate cancer Wears contact lenses Wears glasses Home Medications multivitamin 1 tab PO DAILY 05/02/21 [History Last Taken 05/06/21] ciprofloxacin HCl [Cipro] 500 mg PO BID #10 tab 08/14/21 [Rx Last Taken Unknown] Allergy/AdvReac Type Severity Reaction Status Date / Time No Known Allergies Allergy Verified 10/02/21 12:13 Family History (Updated 07/30/21 @ 13:44 by Anita Pearson RN) Mother Cancer ovarian Surgical History (Updated 08/09/21 @ 14:11 by Marla Loya) History of colonoscopy Hx of surgical procedure Social History (Updated 07/30/21 @ 13:44 by Anita Pearson RN) Smoking Status: Never smoker substance use type: does not use Diagnosis: Eliecer Santoro is a 65-year-old male diagnosed with 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 Plan: Plan was made to complete definitive radiation therapy consisting of 7000 cGy delivered to the prostate and proximal seminal vesicles in 28 fractions. Treatment Data: Treatment Site: Prostate Current total dose/Total dose planned: 5750 cGy / 7000 cGy Fraction number: Chemotherapy: none Subjective: Pain: 0 / 10 Fatigue: none Skin: no erythema, rash, desquamation GI: no diarrhea/constipation. No rectal pain or bleeding. No bloating or increased gas : no increase urinary symptoms. No dysuria or hematuria. NF x1-2 Objective: Weight: 166 lbs Physical Exam: Gen: NAD Skin: no erythema, rash, desquamation. Labs: None Assessment Plan Assessment/Plan (1) Cancer of prostate with intermediate recurrence risk (stage T2b-c or Kamil[place] 7 or PSA 10-20): PLAN: PLAN: Assessment: Tolerating treatment well overall. I reviewed and approved all treatment associated imaging. No treatment associated toxicities are noted at this time Plan: Continue treatment as planned. I have reviewed potential treatment associated toxicities as well as timing for resolution and management. Skin: Skin care reviewed, continue lotion prn Follow up next week or sooner if needed. Thank you for allowing me to participate in the management and care of your patient. If I may answer any questions in the interim, please do not hesitate to contact me at any time. Ronn Zhang M.D. Coding Level of Care Code Radiation Tx Management x5 Diagnoses Cancer of prostate with intermediate recurrence risk (stage T2b-c or [place] 7 or PSA 10-20) C61 10/02/21 1221 <Electronically signed by Ronn Zhang MD> Date Ronn Zhang MD Cosigner Signature: Date (if applicable) CC: Esther Lopez DO Work Phone: Start: 09-25-2021 End: 09-25-2021 Radiation Oncology Visit Procedure Note: See Note; NOTES: [facility] [address] [address] OFFICE VISIT Date of Service: 09/25/21 1212 MR#: [id number] Acct: [id number] Name: ELIECER SANTORO Rep #: [id number] : 1955 From: Leonel Snow DO Age/Sex: 65/M Location: [facility] Status: Signed Intake Vital Signs 09/25/21 12:12 Weight: 167 lb 3 oz BP 151/90 H Blood Pressure Location Rt brachial Position Sitting Respiration 14 Pulse 56 L Pulse Source Monitor Temp 98.1 F Temperature Source Temporal Artery Pulse Oximetry (%) 99 Oxygen Delivery Method room air 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 Is patient in pain?: No Allergies No Known Allergies Allergy (Verified 09/25/21 12:14) Medications multivitamin 1 tab PO DAILY 05/02/21 [History Confirmed 09/25/21] ciprofloxacin HCl [Cipro] 500 mg PO BID #10 tab 08/14/21 [Rx Confirmed 09/25/21] PFSH PFSH Medical History (Updated 08/09/21 @ 14:19 by Marla Loya) Non-smoker Prostate cancer Wears contact lenses Wears glasses Home Medications multivitamin 1 tab PO DAILY 05/02/21 [History Last Taken 05/06/21] ciprofloxacin HCl [Cipro] 500 mg PO BID #10 tab 08/14/21 [Rx Last Taken Unknown] Allergy/AdvReac Type Severity Reaction Status Date / Time No Known Allergies Allergy Verified 09/25/21 12:14 Family History (Updated 07/30/21 @ 13:44 by Anita Pearson, RN) Mother Cancer ovarian Surgical History (Updated 08/09/21 @ 14:11 by Marla Loya) History of colonoscopy Hx of surgical procedure Social History (Updated 07/30/21 @ 13:44 by Anita Pearson, RN) Smoking Status: Never smoker substance use type: does not use Diagnosis: Eliecer Santoro is a 65-year-old male diagnosed with 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 Plan: Plan was made to complete definitive radiation therapy consisting of 7000 cGy delivered to the prostate and proximal seminal vesicles in 28 fractions. Treatment Data: Treatment Site: Prostate Current total dose/Total dose planned: 4500 cGy / 7000 cGy Fraction number: Chemotherapy: none Subjective: Pain: 0 / 10 Fatigue: none Skin: no erythema, rash, desquamation GI: no diarrhea/constipation. No rectal pain or bleeding. No bloating or increased gas : no increase urinary symptoms. No dysuria or hematuria Objective: Weight: 166 lbs Physical Exam: Gen: NAD Skin: no erythema, rash, desquamation. Labs: None Assessment Plan Assessment/Plan (1) Cancer of prostate with intermediate recurrence risk (stage T2b-c or [place] 7 or PSA 10-20): PLAN: Assessment: Tolerating treatment well overall. I reviewed and approved all treatment associated imaging. No treatment associated toxicities are noted at this time Plan: Continue treatment as planned. I have reviewed potential treatment associated toxicities as well as timing for resolution and management. Skin: Skin care reviewed, continue lotion prn Follow up next week or sooner if needed. Thank you for allowing me to participate in the management and care of your patient. If I may answer any questions in the interim, please do not hesitate to contact me at any time. Leonel Snow DO, MS Bilingual Operator, Department of Radiation Oncology [facility] Coding Level of Care Code Radiation Tx Management x5 Diagnoses Cancer of prostate with intermediate recurrence risk (stage T2b-c or [place] 7 or PSA 10-20) C61 09/25/21 1234 <Electronically signed by Leonel Snow DO> Date Leonel Snow DO Cosigner Signature: Date (if applicable) CC: Etsher Lopez DO Work Phone: Start: 09-17-2021 End: 09-17-2021 Radiation Oncology Visit Procedure Note: See Note; NOTES: [facility] [address] [address] OFFICE VISIT Date of Service: 09/17/21 1211 MR#: [id number] Acct: [id number] Name: ELIECER SANTORO Rep #: [id number] : 1955 From: Leonel Snow DO Age/Sex: 65/M Location: [facility] Status: Signed Intake Vital Signs 09/17/21 12:11 Weight: 166 lb 4 oz BP 141/88 H Blood Pressure Location Lt brachial Position Sitting Respiration 14 Pulse 60 Pulse Source Monitor Temp 98 F Temperature Source Temporal Artery Pulse Oximetry (%) 100 Oxygen Delivery Method room air 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 Is patient in pain?: No Allergies No Known Allergies Allergy (Verified 09/17/21 12:14) Medications multivitamin 1 tab PO DAILY 05/02/21 [History Confirmed 09/17/21] ciprofloxacin HCl [Cipro] 500 mg PO BID #10 tab 08/14/21 [Rx Confirmed 09/17/21] PFSH PFSH Medical History (Updated 08/09/21 @ 14:19 by Marla Loya) Non-smoker Prostate cancer Wears contact lenses Wears glasses Home Medications multivitamin 1 tab PO DAILY 05/02/21 [History Last Taken 05/06/21] ciprofloxacin HCl [Cipro] 500 mg PO BID #10 tab 08/14/21 [Rx Last Taken Unknown] Allergy/AdvReac Type Severity Reaction Status Date / Time No Known Allergies Allergy Verified 09/17/21 12:14 Family History (Updated 07/30/21 @ 13:44 by Anita Pearson, KHLOE) Mother Cancer ovarian Surgical History (Updated 08/09/21 @ 14:11 by Mrala Loya) History of colonoscopy Hx of surgical procedure Social History (Updated 07/30/21 @ 13:44 by Anita Pearson, KHLOE) Smoking Status: Never smoker substance use type: does not use Diagnosis: Eliecer Santoro is a 65-year-old male diagnosed with 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 Plan: Plan was made to complete definitive radiation therapy consisting of 7000 cGy delivered to the prostate and proximal seminal vesicles in 28 fractions. Treatment Data: Treatment Site: Prostate Current total dose/Total dose planned: 3000 cGy / 7000 cGy Fraction number: Chemotherapy: none Subjective: Pain: 0 / 10 Fatigue: none Skin: no erythema, rash, desquamation GI: no diarrhea/constipation. No rectal pain or bleeding. No bloating or increased gas : no increase urinary symptoms. No dysuria or hematuria Objective: Weight: 166 lbs Physical Exam: Gen: NAD Skin: no erythema, rash, desquamation. Labs: None Assessment Plan Assessment/Plan (1) Cancer of prostate with intermediate recurrence risk (stage T2b-c or [place] 7 or PSA 10-20): PLAN: Assessment: Tolerating treatment well overall. I reviewed and approved all treatment associated imaging. No treatment associated toxicities are noted at this time Plan: Continue treatment as planned. I have reviewed potential treatment associated toxicities as well as timing for resolution and management. Skin: Skin care reviewed, continue lotion prn Follow up next week or sooner if needed. Thank you for allowing me to participate in the management and care of your patient. If I may answer any questions in the interim, please do not hesitate to contact me at any time. Leonel Snow DO, MS Bilingual Operator, Department of Radiation Oncology [facility] Coding Level of Care Code Radiation Tx Management x5 Diagnoses Cancer of prostate with intermediate recurrence risk (stage T2b-c or [place] 7 or PSA 10-20) C61 09/17/21 1221 <Electronically signed by Leonel Snow DO> Date Leonel Snow DO [facility] Signature: Date (if applicable) CC: Esther Lopez DO Work Phone: Start: 09-11-2021 End: 09-11-2021 Radiation Oncology Visit Procedure Note: See Note; NOTES: [facility] [address] [place] [address] OFFICE VISIT Date of Service: 09/11/21 1214 MR#: [id number] Acct: [id number] Name: ELIECER SANTORO Rep #: [id number] : 1955 From: Leonel Snow DO Age/Sex: 65/M Location: [facility] Status: Signed Intake Vital Signs 09/11/21 12:14 BP 142/87 H Blood Pressure Location Rt brachial Position Sitting Respiration 14 Pulse 53 L Pulse Source Monitor Temp 97.9 F Temperature Source Temporal Artery Pulse Oximetry (%) 99 Oxygen Delivery Method room air 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 Is patient in pain?: No Allergies No Known Allergies Allergy (Verified 09/11/21 12:16) Medications multivitamin 1 tab PO DAILY 05/02/21 [History Confirmed 09/11/21] ciprofloxacin HCl [Cipro] 500 mg PO BID #10 tab 08/14/21 [Rx Confirmed 09/11/21] PFSH PFSH Medical History (Updated 08/09/21 @ 14:19 by Marla Loya) Non-smoker Prostate cancer Wears contact lenses Wears glasses Home Medications multivitamin 1 tab PO DAILY 05/02/21 [History Last Taken 05/06/21] ciprofloxacin HCl [Cipro] 500 mg PO BID #10 tab 08/14/21 [Rx Last Taken Unknown] Allergy/AdvReac Type Severity Reaction Status Date / Time No Known Allergies Allergy Verified 09/11/21 12:16 Family History (Updated 07/30/21 @ 13:44 by Anita Pearson RN) Mother Cancer ovarian Surgical History (Updated 08/09/21 @ 14:11 by Marla Loya) History of colonoscopy Hx of surgical procedure Social History (Updated 07/30/21 @ 13:44 by Anita Pearson RN) Smoking Status: Never smoker substance use type: does not use Diagnosis: Eliecer Santoro is a 65-year-old male diagnosed with 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 Plan: Plan was made to complete definitive radiation therapy consisting of 7000 cGy delivered to the prostate and proximal seminal vesicles in 28 fractions. Treatment Data: Treatment Site: Prostate Current total dose/Total dose planned: 2000 cGy / 7000 cGy Fraction number: Chemotherapy: none Subjective: Pain: 0 / 10 Fatigue: none Skin: no erythema, rash, desquamation GI: no diarrhea/constipation. No rectal pain or bleeding. No bloating or increased gas : no increase urinary symptoms. No dysuria or hematuria Objective: Weight: 163 lbs Physical Exam: Gen: NAD Skin: no erythema, rash, desquamation. Labs: None Assessment Plan Assessment/Plan (1) Cancer of prostate with intermediate recurrence risk (stage T2b-c or [place] 7 or PSA 10-20): PLAN: Assessment: Tolerating treatment well overall. I reviewed and approved all treatment associated imaging. No treatment associated toxicities are noted at this time Plan: Continue treatment as planned. I have reviewed potential treatment associated toxicities as well as timing for resolution and management. Skin: Skin care reviewed, continue lotion prn Follow up next week or sooner if needed. Thank you for allowing me to participate in the management and care of your patient. If I may answer any questions in the interim, please do not hesitate to contact me at any time. Leonel Snow DO, MS Bilingual Operator, Department of Radiation Oncology [facility] Coding Level of Care Code Radiation Tx Management x5 Diagnoses Cancer of prostate with intermediate recurrence risk (stage T2b-c or [place] 7 or PSA 10-20) C61 09/11/21 1224 <Electronically signed by Leonel Snow DO> Date Leonel Snow DO Cosigner Signature: Date (if applicable) CC: Esther Lopez DO Work Phone: Start: 09-04-2021 End: 09-04-2021 Radiation Oncology Visit Procedure Note: See Note; NOTES: [facility] [place] [address] OFFICE VISIT Date of Service: 09/04/21 1232 MR#: [id number] Acct: [id number] Name: ELIECER SANTORO Rep #: [id number] : 1955 From: Leonel Gwendolyn STAPLES Age/Sex: 65/M Location: [facility] Status: Signed Intake Vital Signs 09/04/21 12:32 Weight: 163 lb BP 145/86 H Blood Pressure Location Lt brachial Position Sitting Respiration 14 Pulse 60 Pulse Source Monitor Temp 97.2 F L Temperature Source Temporal Artery Pulse Oximetry (%) 96 Oxygen Delivery Method room air 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 Is patient in pain?: No Allergies No Known Allergies Allergy (Verified 09/04/21 12:34) Medications multivitamin 1 tab PO DAILY 05/02/21 [History Confirmed 09/04/21] ciprofloxacin HCl [Cipro] 500 mg PO BID #10 tab 08/14/21 [Rx Confirmed 09/04/21] PFSH PFSH Medical History (Updated 08/09/21 @ 14:19 by Marla Loya) Non-smoker Prostate cancer Wears contact lenses Wears glasses Home Medications multivitamin 1 tab PO DAILY 05/02/21 [History Last Taken 05/06/21] ciprofloxacin HCl [Cipro] 500 mg PO BID #10 tab 08/14/21 [Rx Last Taken Unknown] Allergy/AdvReac Type Severity Reaction Status Date / Time No Known Allergies Allergy Verified 09/04/21 12:34 Family History (Updated 07/30/21 @ 13:44 by Anita Pearson RN) Mother Cancer ovarian Surgical History (Updated 08/09/21 @ 14:11 by Marla Loya) History of colonoscopy Hx of surgical procedure Social History (Updated 07/30/21 @ 13:44 by Anita Pearson RN) Smoking Status: Never smoker substance use type: does not use Diagnosis: Eliecer Santoro is a 65-year-old male diagnosed with 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 Plan: Plan was made to complete definitive radiation therapy consisting of 7000 cGy delivered to the prostate and proximal seminal vesicles in 28 fractions. Treatment Data: Treatment Site: Prostate Current total dose/Total dose planned: 750 cGy / 7000 cGy Fraction number: Chemotherapy: none Subjective: Pain: 0 / 10 Fatigue: none Skin: no erythema, rash, desquamation GI: no diarrhea/constipation. No rectal pain or bleeding. No bloating or increased gas : no increase urinary symptoms. No dysuria or hematuria Objective: Weight: 163 lbs Physical Exam: Gen: NAD Skin: no erythema, rash, desquamation. Labs: None Assessment Plan Assessment/Plan (1) Cancer of prostate with intermediate recurrence risk (stage T2b-c or [place] 7 or PSA 10-20): PLAN: Assessment: Tolerating treatment well overall. I reviewed and approved all treatment associated imaging. No treatment associated toxicities are noted at this time Plan: Continue treatment as planned. I have reviewed potential treatment associated toxicities as well as timing for resolution and management. Skin: Skin care reviewed, continue lotion prn Follow up next week or sooner if needed. Thank you for allowing me to participate in the management and care of your patient. If I may answer any questions in the interim, please do not hesitate to contact me at any time. Leonel Snow DO, MS Bilingual Operator, Department of Radiation Oncology [facility] Coding Level of Care Code Radiation Tx Management x5 Diagnoses Cancer of prostate with intermediate recurrence risk (stage T2b-c or [place] 7 or PSA 10-20) C61 09/04/21 5817 <Electronically signed by Leonel Snow DO> Date Leonel Snow DO Cosigner Signature: Date (if applicable) CC: Esther Lopez DO Work Phone: Start: 08-20-2021 End: 08-20-2021 Pelvis W/WO Contrast Procedure Note: See Note; NOTES: [facility] Imaging Services [address] [place] [address] [place] [address] Pelvis W/WO Contrast MR#: [id number] Acct: [id number] Name: ELIECER SANTORO Rep #: [id number] : 1955 M 65 From: Erick elder MD PCP: Dr. Esther Lopez DO Status: REG CLI Study: Pelvis W/WO Contrast Date of Exam: 08/20/21 Exam# [id number] Ordering Dr: Leonel Snow DO MR Pelvis Male WO/W Contrast 08/20/2021 12:31 PM COMPARISON: None CLINICAL HISTORY: 65-year-old man with prostate cancer. TECHNIQUE: Axial T1-weighted and high-resolution axial T2-weighted MR images of the pelvis were obtained as well as DWI and postcontrast images following administration of 15 cc of IV Dotarem. Images were acquired for planning of radiation therapy. MRI/Pelvis W/WO Contrast IMPRESSION: 1) T1 hyperintensity scattered throughout the prostate consistent with hemorrhage status post biopsy. This limits evaluation. 2) Heterogeneous appearance of the gland is at least in part due to the known prostate cancer, as well as being consistent with benign prostatic hyperplasia. 3) 1.6 x 1.9 x 2.2 cm PIRADS 5 lesion in the left mid transitional zone. There is possible microcapsular extension posteriorly. There is no evidence of macro capsular extension. 4) No evidence of seminal vesicle or bladder involvement. No bone involvement. No abnormal lymph nodes. Electronically Signed: Erick Herring MD at 22:08 EST , CC: Dr. Esther Lopez DO; Dr. Leonel Snow DO Core Maker: Signed Esther Lopez DO Work Phone: Start: 08-14-2021 End: 08-14-2021 Discharge Instruction Comments: See Note; NOTES: [facility] Medical Records Department [address] [place] [address] Instructions for Home/Discharge Instructions 08/14/21 0853 MR#: [id number] Acct: [id number] Name: ELIECER SANTORO Rep #: [id number] : 1955 65 From: Christopher Camarena MD PCP: Dr. Esther Lopez DO Status:REG [facility] Discharge Instructions Diet Discharge Diet: No restrictions Activity Discharge Activity: Return to Normal Activity and May Not Drive (while taking narcotic pain medications.) Dressing / Incision Call your doctor if you observe: Fever of 101 or Higher Follow Up Care Please Follow Up With: Christopher Camarena MD When: Call [phone] for an appointment Test Results: Test results from this visit will be discussed in further detail at your follow-up appointment, if applicable. Discharge Plan Admission Primary Reason for Your Visit: Prostate cancer Attending Provider: Christopher Camarena Primary Care Provider: Esther Lopez Discharge Orders/Prescriptions Prescriptions: New ciprofloxacin HCl [Cipro] 500 mg tablet 500 mg PO BID Qty: 10 RF: 0 No Action multivitamin Tablet 1 tab PO DAILY RF: 0 Referrals / Follow Up: Christopher Camarena MD [STAFF PHYSICIAN] - Esther Lopez DO [Primary Care Provider] - Disposition Disposition (needs filled in before D/C Order can be placed): Home, Self Care 08/14/21852<Electronically signed by Christopher Camarena MD>Christopher Camarena MD CC: Dr. Esther Lopez DO Signed Esther Lopez DO Work Phone: Start: 08-14-2021 End: 08-14-2021 Operative Report Comments: See Note; NOTES: [facility] Medical Records Department [address] [place] [address] Operative Report 08/14/21852 MR#: [id number] Acct: [id number] Name: ELIECER SANTORO Rep #: [id number] : 1955 65 From: Christopher Camarena MD PCP: Dr. Esther Lopez DO Status:REG [facility] Location: [place] [address] Report of Operation Date of Procedure: 08/14/21 Pre-Operative Diagnosis: Prostate cancer Post-Operative Diagnosis: Prostate cancer Surgery/Procedure Performed:: Placement of gold fiducial markers for radiation therapy planning, placement of spacer organ at risk gel matrix for radiation planning. Description of Surgical Findings:: Patient was taken back to the operating room after smooth induction of anesthesia he was placed supine on the table. The genitals and perineum were prepped and draped in usual sterile fashion. I then introduced a biplanar ultrasound probe into the rectum and performed ultrasonography and identified the Denonvilliers' fascia the prostate mid base and apex and seminal vesicles. The spacer gel mix was then prepared on the back table per manufactures instruction. Under ultrasound guidance in the midline perineum a bevel needle down we advanced through the perineum below the prostate into the space of Denonvilliers' fascia. This space which could be identified by ultrasound with a bright white layer between the prostate and the rectum. I then injected a puff of normal saline to identify the space further. After I confirmed that the needle was in the correct space in the mid prostate and the space of Denonvilliers' fascia between the rectum and the prostate. Then over the course of 15 seconds the gel matrix was injected slowly there was nice separation between the prostate and the rectum at the gel matrix was injected. The position of the gel matrix was confirmed by ultrasound. Then the injection needle was removed intact. The penis and testicles were prepped and draped in usual sterile fashion, ultrasound probe was placed into the rectum and biplanar ultrasound was performed on the prostate. Identified the base mid and apex of the prostate identified the transition zone prostate. Then using a needle the first bowling ball marker was placed into the right base of the prostate, the second bowling ball marker was placed in the left base of the prostate, and the third core marker was placed in the right apex of the prostate after all 3 markers were placed the placement of the markers were confirmed by ultrasonography Surgeon: Migue Type of Anesthesia: General Admit VTE Documentation VTE Present on Admission: No VTE Mechan Device Prophylaxis: SCD's VTE Pharm Prophylaxis ordered?: No 08/14/21 0855 <Electronically signed by Christopher Camarena MD> Cosigner Signature (if applicable): CC: Dr. Christopher Camarena MD; Dr. Esther Lopez, DO Signed Esther Lopez DO Work Phone: Start: 08-14-2021 End: 08-14-2021 History and Physical Exam Comments: See Note; NOTES: [facility] Medical Records Department [address] [place] [address] History Physical Exam 08/14/21 0852 MR#: [id number] Acct: [id number] Name: ELIECER SANTORO Rep #: [id number] : 1955 65 From: Christopher Camarena MD PCP: Dr. Esther Lopez, DO Status:[facility] Location: [place] [address] HPI - General HPI Narrative ELIECER SANTORO, is a 65 M who presents for placement of markers and spacer gel to plan for treatment of prostate cancer [facility] Medical History (Updated 08/09/21 @ 14:19 by Marla Loya) Non-smoker Prostate cancer Wears contact lenses Wears glasses Home Medications multivitamin 1 tab PO DAILY 05/02/21 [History Last Taken 05/06/21] ciprofloxacin HCl [Cipro] 500 mg PO BID #10 tab 08/14/21 [Rx Last Taken Unknown] Allergy/AdvReac Type Severity Reaction Status Date / Time No Known Allergies Allergy Verified 08/14/21 07:15 Family History (Updated 07/30/21 @ 13:44 by Anita Pearson RN) Mother Cancer ovarian Surgical History (Updated 08/09/21 @ 14:11 by Marla Loya) History of colonoscopy Hx of surgical procedure Social History (Updated 07/30/21 @ 13:44 by Anita Pearson RN) Smoking Status: Never smoker substance use type: does not use Vital Signs Vital Signs Vital Signs: 08/14/21 07:25 Temperature 97.8 F Temperature Source Temporal Pulse Rate 63 Respiratory Rate 16 Respiratory Pattern Normal Blood Pressure 129/86 H Blood Pressure Mean 100 Blood Pressure Source Monitor Blood Pressure Position Semi-Fowlers Blood Pressure Location Left Arm Pulse Ox 99 Oxygen Delivery Method Room Air Weight Weight: 76 kg Body Mass Index (BMI) 24.0 08/14/21 0853 <Electronically signed by Christopher Camarena MD> Cosigner Signature (if applicable): CC: Dr. Christopher Camarena MD; Dr. Esther Lopez, DO Signed Esther Lopez DO Work Phone: Start: 07-30-2021 End: 07-30-2021 Radiation Oncology Visit Comments: See Note; NOTES: [facility] [address] [facility] 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: No Is patient in pain?: No Allergies No Known Allergies Allergy (Verified 07/30/21 13:43) Medications multivitamin 1 tab PO DAILY 05/02/21 [History Confirmed 07/30/21] PFSH PFSH Medical History Wears contact lenses Wears glasses Home Medications multivitamin 1 tab PO DAILY 05/02/21 [History Last Taken 05/06/21] Allergy/AdvReac Type Severity Reaction Status Date / Time No Known Allergies Allergy Verified 07/30/21 13:43 Family History (Updated 07/30/21 @ 13:44 by Anita Pearson RN) Mother Cancer ovarian Surgical History Hx of surgical procedure Social History (Updated 07/30/21 @ 13:44 by Anita Pearson RN) Smoking Status: Never smoker substance use type: does not use Do you regularly see your primary care physician?: Yes Have you ever had a colonoscopy?: Yes Patient received vaccine this flu season, prior to admission Referring Provider: Kwaku Camarena MD Diagnosis: Eliecer Santoro is a 65-year-old male diagnosed with 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 History of Present Illness: 05/07/2021: Colonoscopy was performed. This demonstrated no lesions or abnormalities. 06/27/2021: TRUS guided biopsy of the prostate was performed. This demonstrated [place] score 3+3 adenocarcinoma involving less than 2% of 1/2 cores in the right mid, 50% of 1/2 cores of the right base, 75% of 2/2 cores of the left mid, and 80% of 2/2 cores of the left base. 07/17/2021: Bone scan was performed which demonstrated evidence of degenerative arthritis, evidence of trauma/fracture in the right ulnar diaphysis, but no evidence of metastatic disease. 07/24/2021: CT abdomen/pelvis with contrast was performed. This demonstrated prostatic calcifications. No evidence of lymphadenopathy. No evidence of disease. 07/25/2021: Patient was evaluated by urology to discuss imaging results and treatment options. Recommended against active surveillance and discussed surgery and radiation therapy. Radiation Treatment History: No prior history of radiation therapy. No pacemaker. No diagnosis of radiosensitizing comorbidity Interval History: Patient presents for initial consultation. He reports having his prostate cancer diagnosed due to having elevated PSA and he denies having any symptoms. Specifically he denies any urinary symptoms including increased frequency, urgency, hesitancy, weak stream, incomplete emptying, straining, urgency, dysuria, hematuria. He has nocturia about once per night. He does have difficulty with sexual function and takes sildenafil which has been relatively helpful to sustain an erection for intercourse. He denies fatigue, bone pain, unexpected weight loss, abdominal pain. He does report normal bowel movements with occasional constipation. He denies rectal pain or bleeding. He stays active in his daily life and cares for himself without any difficulty. He is retired. He denies having other problems or concerns at this time. IPSS: 0 RAGHAV: 15 Review of Systems: A 12-point review of systems was completed and was negative except for what is noted in the HPI/Interval History and by the nurse. Physical Exam: Weight: 171 lbs 6 oz ECO KARNOFSKY SCORE: 100% CONSTITUTIONAL: Well-developed, well-nourished, and in no apparent distress. NECK: Supple, no thyromegaly, and non-tender. Trachea midline. No cervical or supraclavicular adenopathy noted. CARDIAC: Regular rate and rhythm. Normal S1, S2. No murmurs, rubs, or gallops. PULMONARY/CHEST: Lungs are clear to auscultation and percussion bilaterally. No wheezes, rhonchi, or crackles noted. No increased work of breathing. ABDOMINAL: Abdomen soft, non-tender, non-distended. No hepatomegaly. Normoactive bowel sounds in all four quadrants. No guarding, rebound. BACK: Straight and aligned. No CVA tenderness. Axial skeleton non-tender to percussion. EXTREMITIES: Full range of motion in all four extremities. No evidence of edema. NEUROLOGICAL EXAM: Alert and oriented x 3. Answers questions and follows commands appropriately. Cranial nerves II through XII are grossly intact. No focal neurological deficit. Speech is fluent. Muscle strength is 5/5 in all muscle groups. Gait and posture without abnormality. PSYCHIATRIC: Appropriate mood and affect for the clinical situation. 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 Plan: Patient presents for initial consultation. He appears to be essentially asymptomatic from his prostate cancer and has an excellent performance status with essentially no other medical comorbidities. He does have some erectile function and uses sildenafil for assistance, this has been ongoing for a few months. I had a detailed discussion with the patient regarding the diagnosis of intermediate risk prostate cancer. He technically has unfavorable intermediate risk given the high volume of disease and PSA of 13.6. I reviewed potential treatment options including surgery and external beam radiation therapy. He has been evaluated by urology and discussed surgical options. I also reviewed that many patients with intermediate risk prostate cancer may benefit from short-term ADT but I think that his benefit would likely be low and reasonable to admit given the potential toxicities to ADT. Risk for SVI and LN involvement is 3% and 5% using the [facility] nomogram. Specifically, for external beam radiation therapy I discussed that the use of moderate hypofractionation has been compared to conventional long course radiation in several trials and demonstrated equivalent disease results and very similar risk of toxicity, this has now been recognized as an acceptable treatment recommendation as published STEPHEN/ASCO/AUA consensus guideline. I reviewed the use of fiducial markers to improve target localization during treatment and also the use of space OAR has been shown to improve risk of rectal toxicity. Following placement of space OAR and fiducials I would recommend MRI for improved anatomical delineation for treatment planning. I reviewed the logistics of radiation therapy including CT simulation, treatment planning, and daily fractionated radiation therapy. I stressed the importance of coming to all treatments and to not unnecessarily prolong the treatment course. I also reviewed recommendations of completing treatment with a full bladder as a strategy to improve normal tissue toxicity. I reviewed the potential acute and chronic toxicities from prostate radiation and these include but are not limited to fatigue, skin irritation, rectal irritation/discomfort, loose stool/diarrhea, urinary frequency/dysuria, rectal ulcer, pain/bleeding with bowel movements, persistent urinary frequency, urethral stricture, erectile dysfunction, retrograde ejaculation, weakening of pelvic bones and increased fracture risk, and risk of secondary carcinoma. The relative estimated risk and time course as well as potential management of these toxicities was discussed. Following our discussion he would like to proceed with active treatment and is deciding between surgery and radiation therapy, he is planning to make his decision within the next week and inform us of his decision. He was instructed to call with any further questions or concerns in the interim. Thank you for allowing me to participate in the management and care of your patient. If I may answer any questions in the interim, please do not hesitate to contact me at any time. Leonel Snow DO, MS Bilingual Operator, Department of Radiation Oncology [facility] Coding Level of Care Code Off vis,new,level 5 Diagnoses Cancer of prostate with intermediate recurrence risk (stage T2b-c or [place] 7 or PSA 10-20) C61 07/30/21 3954 <Electronically signed by Leonel Snow DO> Date Leonel Snow DO Cosign Signature: Date (if applicable) CC: Dr. Christopher Camarena MD; DO Esther Cerda DO Work Phone: Start: 07-24-2021 End: 07-24-2021 Abdomen/Pelvis WITH Contrast Comments: See Note; NOTES: [facility] Imaging Services [address] [place] [address] Abdomen/Pelvis WITH Contrast MR#: [id number] Acct: [id number] Name: ELIECER SANTORO Rep #: [id number] : 1955 M 65 From: Osbaldo Milan MD PCP: Dr. Esther Lopez DO Status: REG CLI Study: Abdomen/Pelvis WITH Contrast Date of Exam: 12/08 Exam# [id number] Ordering Dr: Christopher Camarena MD STUDY: CT ABDOMEN AND PELVIS WITH CONTRAST REASON FOR EXAM: Male, 65 years old. PROSTATE CA RADIATION DOSAGE (If Supplied By Facility): CTDIvol = ( 11.36 ) mGy, DLP = ( 412.52 ) mGycm TECHNIQUE: Transaxial images were obtained from the dome of the diaphragm to the symphysis pubis with oral contrast. Oral and amp;amp; IV REDICAT and amp;amp; 100mL Isovue-300 was administered. Sagittal and coronal images were reconstructed. Individualized dose optimization techniques were used for this CT. COMPARISON: None. FINDINGS: The visualized lung bases are unremarkable. The visualized portions of the heart are within normal limits. Multiple small hepatic cysts. Normal gallbladder and extrahepatic biliary system. Normal spleen. Normal pancreas. Normal bilateral adrenal glands. Normal right kidney. 6.5 cm exophytic cyst in the upper pole left kidney. Normal visualized stomach. Normal small intestine. Normal colon. There is non-visualization of the appendix. Normal abdominal aorta. Normal inferior vena cava. Normal retroperitoneum. Normal urinary bladder. There are prostatic calcifications. There is a small umbilical hernia containing fat. Mild levoscoliosis of the lumbar spine. CT/Abdomen/Pelvis WITH Contrast IMPRESSION: Normal enhanced CT of the abdomen and pelvis. No metastatic lymphadenopathy. Electronically Signed: Osbaldo Milan MD at 15:01 EST Tel , Service support , CC: Dr. Christopher Camarena MD; Dr. Esther Lopez DO Core Maker: Signed Esther Lopez DO Work Phone: Start: 07-17-2021 End: 07-17-2021 Bone Scan Whole Body Comments: See Note; NOTES: [facility] Imaging Services [address] [place] [address] Bone Scan Whole Body MR#: [id number] Acct: [id number] Name: ELIECER SANTORO Rep #: [id number] : 1955 M 65 From: Osbaldo Howard PCP: Dr. Esther Lopez DO Status: REG CLI Study: Bone Scan Whole Body Date of Exam: 07/17/21 Exam# [id number] Ordering Dr: Christopher Camarena MD CLINICAL: 65-year-old male with reported history of carcinoma of the prostate. WHOLE BODY 99m Tc MDP RADIONUCLIDE BONE SCINTIGRAPHY COMPARISON: None available FINDINGS: Following the intravenous administration of 24.8 mCi of 99m Tc MDP, whole body bone images reveal: 1. Increased radiopharmaceutical concentration is defined in the acromioclavicular and sternoclavicular compartments of both shoulders, posterior midline sacrum, left wrist, right hand, knees bilaterally. 2. Facilitated uptake is observed in the distribution of the distal right ulnar diaphysis. 3. The remaining skeletal structures are scintigraphically unremarkable with normal-appearing renal images and urinary bladder activity identified. An increase in radiotracer is defined in the bilateral maxilla, interorbital aspect of the skull, right lacrimal and zygomatic bones most consistent with periostitis. NM/Bone Scan Whole Body IMPRESSION: 1. The increase in radiopharmaceutical concentration identified in the bilateral shoulders, sacrum, left wrist, right hand, right and left knees is most consistent with degenerative arthritis. 2. Enhanced uptake visualized in the distal right ulnar diaphysis may represent previous trauma-fracture. Plain film radiography correlation may be of benefit. 3. There is no definitive typical scintigraphic evidence of diffuse axial skeletal metastatic disease on the current examination. Electronically Signed: Osbaldo Smith DO at 23:47 EST Tel , Service support , CC: Dr. Christopher Camarena MD; Dr. Esther Lopez DO Core Maker: Signed Esther Lopez DO Work Phone: Start: 05-07-2021 End: 05-15-2021 Colonoscopy Report Comments: See Note; NOTES: [facility] Medical Records Department [address] [place] [address] Colonoscopy Report MR#: [id number] Acct: [id number] Name: ELIECER SANTORO Rep #: [id number] : 1955 65 From: Matteo Lee MD PCP: Dr. Esther Lopez DO Status:REG [facility] Patient Name: Eliecer Santoro Procedure Date: 05/07/2021 8:43 AM Date of : 1955 Age: 65 Procedure: Colonoscopy Indications: Screening for colorectal malignant neoplasm Providers: Matteo Lee MD Medicines: Monitored Anesthesia Care Patient Profile: This is a 65 year old male. Refer to note in patient chart for documentation of history and physical. Last Colonoscopy: none. The patient's first colonoscopy is today. Complications: No immediate complications. Procedure: Pre-Anesthesia Assessment: - Prior to the procedure, a History and Physical was performed, and patient medications and allergies were reviewed. The patient's tolerance of previous anesthesia was also reviewed. The risks and benefits of the procedure and the sedation options and risks were discussed with the patient. All questions were answered, and informed consent was obtained. Prior Anticoagulants: The patient has taken no previous anticoagulant or antiplatelet agents. After reviewing the risks and benefits, the patient was deemed in satisfactory condition to undergo the procedure. After I obtained informed consent, the scope was passed under direct vision. Throughout the procedure, the patient's blood pressure, pulse, and oxygen saturations were monitored continuously. The colonoscope was introduced through the anus and advanced to the cecum, identified by appendiceal orifice and ileocecal valve. The colonoscopy was performed without difficulty. The patient tolerated the procedure well. The quality of the bowel preparation was good. Scope In: 8:49:51 AM Scope Withdrawal Time 0 hours 6 minutes 28 seconds Scope Out: 9:06:04 AM Total Procedure Duration Time 0 hours 16 minutes 13 seconds Findings: The entire examined colon appeared normal on direct and retroflexion views. Impression: - The entire examined colon is normal on direct and retroflexion views. - No specimens collected. Recommendation: - Discharge patient to home. - Resume previous diet. - Continue present medications. - Repeat colonoscopy in 10 years for screening purposes. Procedure Code(s): --- Professional --- 30793, Colonoscopy, flexible; diagnostic, including collection of specimen(s) by brushing or washing, when performed (separate procedure) Diagnosis Code(s): --- Professional --- Z12.11, Encounter for screening for malignant neoplasm of colon CPT copyright 2017 [employer]. All rights reserved. The codes documented in this report are preliminary and upon pmo analyst review may be revised to meet current compliance requirements. Matteo Lee MD 05/07/2021 9:20:53 AM This report has been signed electronically. Number of Addenda: 0 Note Initiated On: 05/07/2021 8:43 AM 05/07/21 0921 Date Matteo Lee MD Cosigner Signature: Date (if indicated) CC: Dr. Matteo Lee MD; Dr. Esther Lopez, DO Date Dictated: 05/07/21842 Date Transcribed: Core Maker: ALEX Lopez DO Work Phone: Start: 05-07-2021 End: 05-15-2021 History and Physical Exam Comments: See Note; NOTES: [facility] Medical Records Department [address] [place] [address] History Physical Exam 05/07/21 0832 MR#: [id number] Acct: [id number] Name: ELIECER SANTORO Rep #: [id number] : 1955 65 From: Matteo Lee MD PCP: Dr. Esther Lopez DO Status:REG [facility] Location: [place] [address]- HPI - General HPI Narrative ELIECER SANTORO, is a 65 M who presents for screening colonoscopy. The patient is never had a colonoscopy in the past. Patient reports no abdominal pain or blood in stool. He has no family history of colon cancer. [facility] Medical History (Updated 05/07/21 @ 08:[address] Matteo Lee MD) Wears contact lenses Wears glasses Home Medications multivitamin 1 tab PO DAILY 05/02/21 [History Last Taken 05/06/21] Allergy/AdvReac Type Severity Reaction Status Date / Time No Known Allergies Allergy Verified 05/02/21 14:09 Surgical History (Updated 05/02/21 @ 14:13 by Beth Peña) Hx of surgical procedure Social History Smoking Status: Never smoker Past Medical/Surgical History Planned Operation Planned Operative Procedure/s: COLONOSCOPY Previous Hospitalizations/Surgeries HX Hospitalizations: No Any Problems With Anesthesia: No You/Your Family Experience Fever (Hyperthermia) With Anes: No Cholinesterase deficiency: No Cardiovascular Hx Hypertension: No Respiratory Hx Sleep Apnea: No Hx Respiratory Tract Infection/Cold (presently): No Do You Snore Loudly (louder than talking or can be heard): No Do You Often Feel Tired/ Fatigued/ Sleepy Dring Daytime?: No Has Anyone Observed You Stop Breathing During Sleep?: No Result (for STOP score): Negative Smoking Status: Never smoker Neurological Does patient have nerve stimulator: No Miscellaneous Recent Exposure to Contagious Disease: No Allergies No Known Allergies Allergy (Verified 05/02/21 14:09) Discharge Is Pt Admitted From a [facility], or a Intermediate: No After D/C, Where Do you Plan to Go: Return Home Vital Signs Vital Signs Vital Signs: 05/07/21 08:15 Temperature 96.9 F L Temperature Source Temporal Pulse Rate 65 Respiratory Rate 16 Respiratory Pattern Normal Blood Pressure 136/86 H Blood Pressure Mean 102 Blood Pressure Source Monitor Blood Pressure Position Semi-Fowlers Blood Pressure Location Left Arm Pulse Ox 98 Oxygen Delivery Method Room Air Weight Weight: 158 lb 11.725 oz Body Mass Index (BMI) 22.7 Physical Exam Const alert and oriented x3 Resp normal respiratory effort and normal air movement Cardio regular rate and regular rhythm GI soft to palpation, non-tender and non-distended Assessment Plan Assessment/Plan (1) Screen for colon cancer: PLAN: I explained endoscopy in detail to the patient. I explained the risks including but not limited to stroke or heart attack with anesthesia, perforation of the GI tract, bleeding, infection. I explained that any of these could necessitate further emergency surgery. The patient understands and all questions were answered sufficiently. The patient wishes to proceed with procedure. Matteo Lee MD Pager: [facility] [address] [place] [address], [address] [place] [address] Office: Surgery Risks - Colonoscopy Risks Include but are not Limited To: Risks include but are not limited to: Bleeding, perforation requiring further surgery, inability to complete colonoscopy requiring barium enema. 05/07/21 0833 <Electronically signed by Matteo Lee MD> Cosigner Signature (if applicable): CC: Dr. Matteo Lee MD; Dr. Esther Lopez DO Signed Esther Lopez DO Work Phone: Start: 04-17-2021 End: 04-17-2021 No Known Past Surgical History Berkley Aquinomena SCHERER Plan of Treatment Date Care Activity Detail Author Start: 04-29-2023 Procedure Education Eprescribe d prescriptions (G8553) [facility] Work Phone: Start: 04-29-2023 Provider Instruction s for Treatment [facility] Work Phone: Start: 03-09-2023 Glucose quantitative blood xcpt reagent strip GLUCOSE (78390) [facility] Work Phone: Comment on above: before april appt Start: 03-09-2023 Lipid panel LIPID PANEL (51167) [facility] Work Phone: Comment on above: before april appt Start: 04-24-2022 Procedure Education Eprescribe d prescriptions (G8553) [facility] Work Phone: Start: 04-24-2022 Provider Instruction s for Treatment [facility] Work Phone: Start: 04-24-2021 Assay of prostate specific antigen total PSA (PROSTATE SPECIFIC ANTIGEN) (07854) [facility] Work Phone: Start: 04-19-2021 PSA TOTAL +%FREE 143738 (64844) PSA TOTAL +%FREE 161440 (41434) [facility] Work Phone: Start: 04-17-2021 Procedure Education Eprescribe d prescriptions (G8553) [facility] Work Phone: Start: 04-17-2021 Provider Instruction s for Treatment [facility] Work Phone: Start: 03-15-2007 Assay of prostate specific antigen total PSA (PROSTATE SPECIFIC ANTIGEN) (96941) [facility] Work Phone: Start: 03-15-2007 Lipid panel LIPID PANEL (53383) [facility] Work Phone: [facility] Work Phone: [facility] Work Phone: [facility] Work Phone: Immunizations Immunization Date Immunization Notes Care Provider Fa cilitonny 04-19-2023 influenza, seasonal, injectable Esther Lopez DO Work Phone: [facility] Work Phone: 05-09-2021 Covid (Pfizer) [facility] 10-16-2020 COVID-Pfizer (30 MCG/0.3 ML) Esther Lopez DO Work Phone: [facility] Work Phone: 09-25-2020 COVID-Pfizer (30 MCG/0.3 ML) Esther Lopez DO Work Phone: [facility] Work Phone: Payers Date Payer Category Payer Self-pay [id number] 2021 Medicare [id number] 1955 Unknown [id number] Medicare MEDICARE PART A B [id number] Unknown [employer] Life Ins/Medicare Unknown [id number] Unknown [id number] Unknown [id number] Social History Date Type Detail Facility Alcohol Use Alcohol Use [facility] Work Phone: Comment on above: 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 , 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 Smokes cigars-someti [facility] Start: 08-09-2021 End: 08-09-2021 Tobacco smoking status NHIS Unknown if ever smoked [facility] Start: 1955 Sex Assigned At Male [facility] Start: 08-09-2021 Tobacco smoking stat us NHIS Never smoked tobacco (finding) [facility] Start: 10-13-2024 Sex Male (finding) [facility] Medical Equipment Procedure Code Equipment Code Equipment Origin al Text Equipment Identifier Dates HYDROGEL, 10ML FDA Start: 08-14-2021 MARKERS, FIDUCIA L GOLD FDA Start: 08-14-2021 HYDROGEL, 10ML FDA Start: 08-14-2021 MARKERS, FIDUCIA L GOLD FDA Start: 08-14-2021 HYDROGEL, 10ML FDA Start: 08-14-2021 MARKERS, FIDUCIA L GOLD FDA Start: 08-14-2021 Evaluation note Note Date & Type Note Facility Evaluation note No assessment information availa ble [facility] Work Phone: Instructions Note Date & Type Note Facility Instructions Name Patient Instructions Indication:Annual Medicare Phyiscal WITHOUT abnormal findings (Renamed from Encounter for general adult medical examination without abnormal findings) Start: Instruction Type:Provider Instructions for Treatment How to Access Health Information Online using Patient Portal and Adaptive Planning Apps Indication:Annual Medicare Phyiscal WITHOUT abnormal findings (Renamed from Encounter for general adult medical examination without abnormal findings) Start: Instruction Type:Patient Education [facility] Work Phone: Instructions Note Date & Type Note Facility Instructions Name Patient Instructions Indication:Annual Medicare Phyiscal WITHOUT abnormal findings (Renamed from Encounter for general adult medical examination without abnormal findings) Start: Instruction Type:Provider Instructions for Treatment How to Access Health Information Online using Patient Portal and BlogCN Indication:Annual Medicare Phyiscal WITHOUT abnormal findings (Renamed from Encounter for general adult medical examination without abnormal findings) Start: Instruction Type:Patient Education [facility] Work Phone: Instructions Note Date & Type Note Facility Instructions Name Patient Instructions Indication:Need for prophylactic vaccination and inoculation against influenza (Renamed from Need for immunization against influenza) Start:24-Apr-2022 Instruction Type:Provider Instructions for Treatment How to Access Health Information Online using Patient Portal and Adaptive Planning Apps Indication:Need for prophylactic vaccination and inoculation against influenza (Renamed from Need for immunization against influenza) Start:24-Apr-2022 Instruction Type:Patient Education Patient Instructions Indication:Annual Medicare Phyiscal WITHOUT abnormal findings (Renamed from Encounter for general adult medical examination without abnormal findings) Start: Instruction Type:Provider Instructions for Treatment How to Access Health Information Online using Patient Portal and Adaptive Planning Apps Indication:Annual Medicare Phyiscal WITHOUT abnormal findings (Renamed from Encounter for general adult medical examination without abnormal findings) Start: Instruction Type:Patient Education [facility]; [facility] Work Phone: Instructions Note Date & Type Note Facility Instructions Name Patient Instructions Indication:Need for prophylactic vaccination and inoculation against influenza (Renamed from Need for immunization against influenza) Start:24-Apr-2022 Instruction Type:Provider Instructions for Treatment How to Access Health Information Online using Patient Portal and Adaptive Planning Apps Indication:Need for prophylactic vaccination and inoculation against influenza (Renamed from Need for immunization against influenza) Start:24-Apr-2022 Instruction Type:Patient Education Patient Instructions Indication:Annual Medicare Phyiscal WITHOUT abnormal findings (Renamed from Encounter for general adult medical examination without abnormal findings) Start: Instruction Type:Provider Instructions for Treatment How to Access Health Information Online using Patient [employer] and Adaptive Planning Apps Indication:Annual Medicare Phyiscal WITHOUT abnormal findings (Renamed from Encounter for general adult medical examination without abnormal findings) Start: Instruction Type:Patient [facility]; [facility] Work Phone: Instructions Note Date & Type Note Facility Instructions Name Patient Instructions Indication:Need for prophylactic vaccination and inoculation against influenza (Renamed from Need for immunization against influenza) Start:24-Apr-2022 Instruction Type:Provider Instructions for Treatment How to Access Health Information Online using Patient [employer] and [employer] Indication:Need for prophylactic vaccination and inoculation against influenza (Renamed from Need for immunization against influenza) Start:24-Apr-2022 Instruction Type:Patient Education Patient Instructions Indication:Annual Medicare Phyiscal WITHOUT abnormal findings (Renamed from Encounter for general adult medical examination without abnormal findings) Start: Instruction Type:Provider Instructions for Treatment How to Access Health Information Online using Patient Portal and [employer] Apps Indication:Annual Medicare Phyiscal WITHOUT abnormal findings (Renamed from Encounter for general adult medical examination without abnormal findings) Start: Instruction Type:Patient Education [facility]; [facility] Work Phone: Instructions Note Date & Type Note Facility Instructions Name Patient Instructions Indication:Need for prophylactic vaccination and inoculation against influenza (Renamed from Need for immunization against influenza) Start:24-Apr-2022 Instruction Type:Provider Instructions for Treatment How to Access Health Information Online using Patient [employer] Indication:Need for prophylactic vaccination and inoculation against influenza (Renamed from Need for immunization against influenza) Start:24-Apr-2022 Instruction Type:Patient Education Patient Instructions Indication:Annual Medicare Phyiscal WITHOUT abnormal findings (Renamed from Encounter for general adult medical examination without abnormal findings) Start: 1 Instruction Type:Provider Instructions for Treatment How to Access Health Information Online using Patient [employer] and [employer] Indication:Annual Medicare Phyiscal WITHOUT abnormal findings (Renamed from Encounter for general adult medical examination without abnormal findings) Start: Instruction Type:Patient Education [facility]; [facility] Work Phone: Instructions Note Date & Type Note Facility Instructions Name Patient Instructions Indication:Nonsmoker Start: 3 Instruction Type:Provider Instructions for Treatment How to Access Health Information Online using [employer] and [employer] Indication:Nonsmoker Start: 3 Instruction Type:Patient Education Patient Instructions Indication:Need for prophylactic vaccination and inoculation against influenza (Renamed from Need for immunization against influenza) Start:24-Apr-2022 Instruction Type:Provider Instructions for Treatment How to Access Health Information Online using Patient [employer] Indication:Need for prophylactic vaccination and inoculation against influenza (Renamed from Need for immunization against influenza) Start:24-Apr-2022 Instruction Type:Patient Education Patient Instructions Indication:Annual Medicare Phyiscal WITHOUT abnormal findings (Renamed from Encounter for general adult medical examination without abnormal findings) Start: 1 Instruction Type:Provider Instructions for Treatment How to Access Health Information Online using Patient [employer] and [employer] Indication:Annual Medicare Phyiscal WITHOUT abnormal findings (Renamed from Encounter for general adult medical examination without abnormal findings) Start: Instruction Type:Patient Education [facility]; [facility] Work Phone: Reason for referral (narrative) Note Date & Type Note Facility Reason for referral (narrative) No reason for referral information available [facility] Work Phone: Summary Purpose Family History No Family History Records Found Advance Directives Advance Directive Response Recorded Date/ Time Living Will Yes August 09 2:11pm Power of Television Anchor Yes August 09, 2021 2:11pm Advance Directive Response Recorded Date/ Time Living Will Yes August 09 3:11pm Power of Television Anchor Yes August 09, 2021 3:11pm Additional Source Comments (unrecognized sect ion and content) No Status Records FoundNo Status Records Found INFORMATION SOURCE (unrecogn ized section and content) DATE CREATED AUTHOR 04/25/2022 [facility] DATE CREATED AUTHOR AUTHOR'S ORGANIZ ATION 10/15/2024 [facility] Care Teams (unrecognized sec tion and content) Team Status: Active Member Role Status Dates Dr. Octavio Pérez MD Family Provider Active Dr. Esther Lopez , DO Primary Care Provider Active Team Status: Inactive Member Role Status Dates Dr. Esther Lopez DO Primary Care Provider Active Dr. Christopher Camarena MD Attending Provider, Referr ing Provider Active Team Status: Inactive Member Role Status Dates Dr. Esther Lopez DO Primary Care Pr ovider, Attending Provider, Referring Provider Active Dr. Christopher Camarena MD Other Provider Active Team Status: Inactive Member Role Status Dates Dr. Esther Lopez , DO Primary Care Provider Active Start: October 07, 2024 End: October 07, 2024 Audrey Braintree Attending Provider Active Start : October 07, 2024 End: October 07, 2024 Audrey Braintree Referring Provider Active Start : October 07, 2024 End: October 07, 2024 Goals (unrecognized section and content) Goals may be documented in a n alternate sectionGoals may be documented in an alternate sectionGoals may be documented in an alternate section FOR RECORDS PERTAINING TO PATIENTS WHO ARE OR HAVE BEEN ENROLLED IN A CHEMICAL DEPENDENCY/SUBSTANCEABUSE PROGRAM, SOME INFORMATION MAY BE OMITTED. This clinical summary was aggregated from multiple sources. Caution should be exercised in using it in the provision of clinical care. This summary normalizes information from multiple sources, and as a consequence, information in this document may materially change the coding, format and clinical context of patient data. In addition, data may be omitted in some cases. CLINICAL DECISIONS SHOULD BE BASED ON THE PRIMARY CLINICAL RECORDS. [employer] provides no warranty or guarantee of the accuracy or completeness of information in this document.
[2025-06-27 08:14] LABS: PSA,Total- Diagnostic 1.23 ng/mL (0.00-4.00)
== END | disposition home or self-care (01) ==
LOC: LAB 07:01
PROVIDERS: PCP Internal Medicine; Referring Provider Nurse Practitioner; Visit Provider Nurse Practitioner
DX: C61 Malignant neoplasm of prostate (principal)
CPT/HCPCS: 36415; 84153